=== PATIENT | female | born 2000 | race Caucasian/White ===

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

== ENCOUNTER 2022-03-06 11:33 | Emergency (ER) | payer MEDICAID, SELFPAY ==
[2022-03-06 12:21] VITALS: BP 115/74; PULSE 77; RESP 19; TEMP 36.1; O2SAT 97; BMI 35.4
[2022-03-06 13:06] LABS: Basophils Percent Auto 0.3 % (0-2); Eosinophils Absolute Auto 0.1 X10*3/uL (0.0-0.4); Eosinophils Percent Auto 0.8 % (0-4); Hematocrit 42.9 % (37.0-47.0); Hemoglobin 13.6 g/dl (12.0-16.0); Imm Gran Abs Auto 0.02 X10*3/uL (0.00-0.03); Imm Gran Pct Auto 0.3 % (0.0-0.4); Lymphocytes Absolute Auto 1.8 X10*3/uL (1.2-4.9); Lymphocytes Percent Auto 29.1 % (20-40); MANUAL DIFF FLAG SCAN; Mean Corpuscular HGB Conc 31.7 g/dl (31.0-35.0); Mean Corpuscular Hemoglobin 28.8 pg (27.0-33.0); Mean Corpuscular Volume 90.7 fL (80.0-98.0); Mean Platelet Volume 10.7 fL (9.4-12.3); Monocytes Absolute Auto 0.3 X10*3/uL (0.1-1.2); Monocytes Percent Auto 5.5 % (2-11); Neutrophils Absolute Auto 3.8 x10*3/uL (2.0-8.3); PLT CLUMP 1; Red Blood Count 4.73 X10*6/uL (4.20-5.50); Red Cell Distribution Width 12.6 % (11.0-16.0); SCAN SMEAR FLAG 1
[2022-03-06 13:07] LABS: Platelet Count 213 X10*3/uL (160-400)
[2022-03-06 13:22] LABS: SLIDE REVIEW VERIFIED
[2022-03-06 13:25] LABS: Alanine Aminotransferase 13 U/L (0-31); Albumin Level 4.2 g/dL (3.5-5.0); Alkaline Phosphatase 94 U/L (39-117); Anion Gap 12 (12-20); Aspartate Amino Transferase 17 U/L (5-31); Bilirubin Total 0.4 mg/dL (0.0-1.0); Blood Urea Nitrogen 6 mg/dL (9-16); Calcium 9.9 mg/dL (8.4-10.2); Carbon Dioxide 25 mmol/L (22-29); Chloride 107 mmol/L (96-108); Creatinine Clr Calc Pharmacy 121.6; Estimated Glomerular Filt Rate > 60; Glucose Random 97 mg/dL (60-115); Potassium 4.7 mmol/L (3.3-5.1); Sodium 139 mmol/L (135-145); Total Protein 7.3 g/dL (6.5-8.0)
== END 2022-03-06 20:52 | disposition left against medical advice (07) ==
PROVIDERS: Emergency Provider Emergency Medicine; PCP Nurse Practitioner Pediatrics
DX: N93.9 Abnormal uterine and vaginal bleeding, unspecified (principal)
CPT/HCPCS: 36415; 80053; 85025; 99282; 99283

== ENCOUNTER 2022-06-12 17:08 | Emergency (ER) | payer MEDICAID, SELFPAY ==
[2022-06-12 17:40] VITALS: BP 124/67; PULSE 79; RESP 18; TEMP 36.9; O2SAT 97; BMI 31.8
[2022-06-12 18:14] LABS: COVID-19 Test Negative (Negative); IDNOW Serial# 16C4AD1C; Influenza A Negative (Negative); Influenza B2 Negative (Negative); Strep A Nucleic Acid Negative (Negative)
--- NOTE | 2022-06-12 18:29 | ED_ITS ---
HPI - URI/Sore Throat General Chief Complaint: Upper Respiratory Symptoms Stated Complaint: sob,coughing Time Seen by Provider: 06/12/22 18:28 Source: patient Mode of arrival: ambulatory History of Present Illness HPI Narrative: 21-year-old female who has a remote history of asthma presents with nasal congestion with cough and denies any fever, chills, sore throat, nausea, vomiting, or diarrhea. Patient denies any smoking history, calf swelling, recent travel. Related Data Allergies Allergy/AdvReac Type Severity Reaction Status Date / Time No Known Allergies Allergy Unverified 08/16/20 18:47 Review of Systems Review of Systems: Pertinent positives and negatives as stated in HPI 10 point review of systems is otherwise negative. PMFSH Past Medical History Source: nursing notes reviewed Medical History Active asthma Physical Exam Vital Signs: Vital Signs: Last Vital Signs Temp 98.5 F 06/12/22 17:40 Pulse 79 06/12/22 17:40 Resp 18 06/12/22 17:40 BP 124/67 06/12/22 17:40 Pulse Ox 97 06/12/22 17:40 O2 Del Method 06/12/22 17:40 BMI result Body Mass Index 31.8 VITAL SIGNS: Reviewed. GENERAL: Well developed, well nourished, in no acute distress. HEAD: Normocephalic/atraumatic EYES: PERRLA, EOMI EARS: Ext canals without abnormality OROPHARYNX: no oral lesions noted, posterior pharynx clear and non-erythematous without noted tonsillar enlargement/erythema/exudates NECK: Supple, no adenopathy LUNGS: Normal breath sounds, no tachypnea/wheeze/rhonchi/rales, easy breathing.SpO2<97> CARDIOVASCULAR: Regular rate and rhythm without noted murmurs ABDOMEN: Soft, non-tender, non-distended with bowel sounds. SKIN: Inspection of the skin reveals no rashes NEUROLOGIC: Alert and oriented x 4. Course Course Course Narrative: 21-year-old female with history and clinical presentation most consistent with viral your eye and low clinical suspicion for acute asthma exacerbation and on review viral studies there are no acute findings to suggest COVID-19 or influenza. Patient has easy and nonlabored breathing, oxygenating well on room air and there are no noted wheezing to suggest exacerbation. Patient was reassured and discharged home in stable condition. MDM - URI/Sore Throat Lab Data Labs: Lab Results 06/12/22 06/12/22 06/12/22 Range/Units 17:44 17:44 17:44 COVID-19 (VIRIDIAAN) Negative (Negative) COVID-19 Clin Com See Note Influenza Type A (ADEBAYO) Negative (Negative) Influenza Type B (ADEBAYO) Negative (Negative) Influenza A & B Note See Note S. pyogenes GrpA ADEBAYO Negative (Negative) Discharge Plan Discharge Clinical Impression: Upper respiratory infection, Lab test negative for COVID-19 virus Patient Disposition: Home, Self-Care Instructions: Upper Respiratory Infection (ED) Additional Instructions: You are COVID-19 negative. You will benefit from using Tylenol/ibuprofen as needed for any headaches or body aches. Keep drinking plenty of water and recommend using [id number] cool mist humidifier at bedside while sleeping as well as [id number] cough medicine for cough control. Also, recommend started using your inhaler as an additional adjunct and continue with using the medications for seasonal allergies. Follow-up with your primary care provider in the next 1-2 days for re-ev aluation. Return to the ER for worsening symptoms.
[2022-06-12] MEDS: Benzonatate 100 MG CAPSULE 200 MG PO (18:37)
== END 2022-06-12 18:52 | disposition home or self-care (01) ==
LOC: HO.ED 18:41
PROVIDERS: Emergency Provider Student in an Organized Health Care Education/Training Program
DX: J06.9 Acute upper respiratory infection, unspecified (principal); R06.02 Shortness of breath; R05.9 Cough, unspecified; Z20.822 Contact with and (suspected) exposure to COVID-19
CPT/HCPCS: 87502; 87635; 87651; 99282; 99283

== ENCOUNTER 2023-01-13 16:38 | Outpatient (REF) | payer MEDICAID, SELFPAY ==
--- NOTE | ~2023-01-13 | XR_ITS ---
EXAMINATION: XR CERVICAL SPINE XR THORACIC SPINE XR LUMBAR SPINE CLINICAL INFORMATION: Chronic midline low back pain. COMPARISON: None. TECHNIQUE: AP, open-mouth odontoid, lateral, and both oblique views of the cervical spine, AP, lateral, and swimmer's views of the thoracic spine, and AP, both oblique, and lateral views of the lumbar spine and lateral view of the lumbosacral junction. FINDINGS: Cervical: Vertebral body heights are normal without evidence of fracture. Alignment is anatomic. No spondylolisthesis. Intervertebral disc heights are normal. No degenerative disc disease. Facet joints are normal. Alignment is maintained at the atlanto-axial articulation. The prevertebral soft tissues are normal. Neural foramina are patent. Thoracic: Vertebral body heights are normal. Alignment is anatomic without spondylolisthesis. Intervertebral disc heights are well-maintained. No degenerative disc disease. Paraspinal soft tissues are unremarkable. No osseous lesions are identified. Lumbar: Vertebral body heights are normal. No fracture or spondylolisthesis. Intervertebral disc heights are maintained without significant degenerative disc disease. Bone mineralization is normal. Soft tissues are unremarkable. Imaged portions of the sacroiliac joints are normal. XR/XR cervical spine 4V IMPRESSION: Normal radiographs of the cervical, thoracic, and lumbar spine.
--- NOTE | ~2023-01-13 | XR_ITS ---
EXAMINATION: XR CERVICAL SPINE XR THORACIC SPINE XR LUMBAR SPINE CLINICAL INFORMATION: Chronic midline low back pain. COMPARISON: None. TECHNIQUE: AP, open-mouth odontoid, lateral, and both oblique views of the cervical spine, AP, lateral, and swimmer's views of the thoracic spine, and AP, both oblique, and lateral views of the lumbar spine and lateral view of the lumbosacral junction. FINDINGS: Cervical: Vertebral body heights are normal without evidence of fracture. Alignment is anatomic. No spondylolisthesis. Intervertebral disc heights are normal. No degenerative disc disease. Facet joints are normal. Alignment is maintained at the atlanto-axial articulation. The prevertebral soft tissues are normal. Neural foramina are patent. Thoracic: Vertebral body heights are normal. Alignment is anatomic without spondylolisthesis. Intervertebral disc heights are well-maintained. No degenerative disc disease. Paraspinal soft tissues are unremarkable. No osseous lesions are identified. Lumbar: Vertebral body heights are normal. No fracture or spondylolisthesis. Intervertebral disc heights are maintained without significant degenerative disc disease. Bone mineralization is normal. Soft tissues are unremarkable. Imaged portions of the sacroiliac joints are normal. XR/XR thoracic spine 3V IMPRESSION: Normal radiographs of the cervical, thoracic, and lumbar spine.
--- NOTE | ~2023-01-13 | XR_ITS ---
EXAMINATION: XR CERVICAL SPINE XR THORACIC SPINE XR LUMBAR SPINE CLINICAL INFORMATION: Chronic midline low back pain. COMPARISON: None. TECHNIQUE: AP, open-mouth odontoid, lateral, and both oblique views of the cervical spine, AP, lateral, and swimmer's views of the thoracic spine, and AP, both oblique, and lateral views of the lumbar spine and lateral view of the lumbosacral junction. FINDINGS: Cervical: Vertebral body heights are normal without evidence of fracture. Alignment is anatomic. No spondylolisthesis. Intervertebral disc heights are normal. No degenerative disc disease. Facet joints are normal. Alignment is maintained at the atlanto-axial articulation. The prevertebral soft tissues are normal. Neural foramina are patent. Thoracic: Vertebral body heights are normal. Alignment is anatomic without spondylolisthesis. Intervertebral disc heights are well-maintained. No degenerative disc disease. Paraspinal soft tissues are unremarkable. No osseous lesions are identified. Lumbar: Vertebral body heights are normal. No fracture or spondylolisthesis. Intervertebral disc heights are maintained without significant degenerative disc disease. Bone mineralization is normal. Soft tissues are unremarkable. Imaged portions of the sacroiliac joints are normal. XR/XR lumbar spine 4V min IMPRESSION: Normal radiographs of the cervical, thoracic, and lumbar spine.
== END 2023-01-13 16:39 | disposition home or self-care (01) ==
LOC: HO.XRAY 16:38
PROVIDERS: PCP Registered Nurse; Visit Provider Registered Nurse
DX: M54.50 Low back pain, unspecified (principal); M54.6 Pain in thoracic spine; M54.2 Cervicalgia
CPT/HCPCS: 72050; 72072; 72110

== ENCOUNTER 2023-07-02 13:05 | Outpatient (REF) | payer MEDICAID, SELFPAY ==
[2023-07-03 05:07] LABS: Syphilis Screen Nonreactive (Nonreactive)
[2023-07-03 05:16] LABS: HIV AB/AG Nonreactive (Nonreactive); HIV Num 1 0.05 S/CO (0.00-0.99)
[2023-07-03 05:20] LABS: CT PCR NOT DETECTED (Not Detect.); NG PCR NOT DETECTED (Not Detect.)
[2023-07-03 05:37] LABS: ~HepC Num1 0.15 S/CO (0.00-0.79); ~Hepatitis C Antibody Nonreactive (Nonreactive)
== END 2023-07-02 13:06 | disposition home or self-care (01) ==
LOC: HO.HHCL 13:05
PROVIDERS: Visit Provider Advanced Practice Midwife
DX: Z11.3 Encounter for screening for infections with a predominantly sexual mode of transmission (principal); Z11.4 Encounter for screening for human immunodeficiency virus [HIV]
CPT/HCPCS: 0353U; 36415; 86780; 86803; 87389

== ENCOUNTER 2023-07-21 10:47 | Outpatient (AMB) | payer MEDICAID, SELFPAY ==
[2023-07-21 10:57] VITALS: BP 112/66; PULSE 82; TEMP 36.9; O2SAT 100; BMI 36.2
--- NOTE | 2023-07-21 10:57 | MHC.OFFVIS ---
Intake Vital Signs 07/21/23 10:57 Height 4 ft 10 in Weight 173 lb 4.533 oz BMI 36.2 BP 112/66 Blood Pressure Location Rt brachial Position Sitting Pulse 82 Pulse Source Pulse Oximeter Temp 98.4 F Temp Source Skin Pulse Oximetry (%) 100 Intake Visit Reasons: Chronic lower back pain Intake Note: New pt presents today for consult. C/o low back pain States she saw Rheum as a juvenile, does not recall name of facility Real Time Operator Required: No Accompanied by: Self / Same As Patient Allergies No Known Allergies Allergy (Unverified 07/21/23 11:00) Medication List - Last Reconciled 07/21/23 by Kike Edgar MD albuterol sulfate mg inhalation Q4H PRN albuterol sulfate 90 mcg/actuation (Ventolin HFA) 2 puffs inhalation Q4-6H PRN ascorbic acid (vitamin C) 1,000 mg PO QAM cetirizine 10 mg PO PRN cholecalciferol (vitamin D3) (Vitamin D3) 25 mcg PO QAM diclofenac sodium 1% 2 grams topical etonogestrel-ethinyl estradiol 0.12-0.015 mg/24 hr 0 vag rings vaginal fluticasone propionate 110 mcg/actuation (Flovent HFA) 110 mcg inhalation BID PRN ibuprofen 600 mg PO TID PRN lidocaine 5% 1 patch topical PRN sumatriptan succinate 25 mg PO ONCE PRN HPI HPI Comments History of Present Illness Details This is a 22-year-old female presents for evaluation of low back pain. The condition started since patient was a child. Back in [place] she was told she has scoliosis and a back brace was recommended but patient left [place] and came to the [place] 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 Patient stated that she was on pain medications, she does not recall the name, she does not recall ever being on DMARDs or injectables. She stated that no medicines helped. She mentioned that her diagnosis of juvenile arthritis was withdrawn. She was re-evaluated by another environmental conflict manager at age 19 and physical therapy was prescribed. Patient has mid to low back pain, it lasts all day every day. Patient uses a lidocaine patch and takes Tylenol which helped her pain. The pain does not shoot down her legs. 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 She denies any skin rashes. Denies any history of DVT/PE. She states that her fingers are cold in winter and she wears a large code and puts her hands in her pockets. Denied her hands ever change in color to blue or purple. She is unaware of any family history of autoimmune rheumatic disease [facility] Medical History Acquired scoliosis Active asthma Chronic midline low back pain without sciatica Elevated sed rate Surgical History No history of previous surgery Family History Mother Diabetes Stroke Father Heart disease Unknown Family history of autoimmune disorder Social History Household Members: Significant Other Alcohol intake: never Patient Tobacco Use Status: Never used Tobacco 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al status: employed 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: [employer], [place], operated by [employer] Female Reproductive History Menstrual Total pregnancies: 0 Review of Systems Const Reports headache(s) Eyes Reports dry eyes and Reports itchy eyes ENT Reports headache(s) GI Reports nausea Skin/Breast Reports rash and Reports unusual bruising Neuro Reports headache(s) Psych Reports anxiety and Reports depression Aller/Immun Reports itchy eyes Physical Exam Vital Signs: Last Vital Signs Temp 98.4 F 07/21/23 10:57 Pulse 82 07/21/23 10:57 BP 112/66 07/21/23 10:57 Pulse Ox 100 07/21/23 10:57 BMI result Body Mass Index 36.2 Const General: cooperative, healthy appearing and comfortable Nutritional Appearance: obese Orientation/consciousness: patient oriented x3 Limitations: no limitations HEENT Head: Yes normocephalic and Yes atraumatic Mouth: moist mucous membranes Resp Effort & Inspection: normal respiratory effort and able to speak in complete sentences Auscultation: clear to auscultation bilaterally Cardio Rate: regular rate Rhythm: regular rhythm GI Palpation (GI): Soft to palpation and nontender Back/Spine/Pelvis Other: Negative straight leg raise test bilaterally Negative Jorge test bilaterally Skin General skin exam: no rashes or lesions noted Neuro General: patient oriented x3 Extrem Other: No active synovitis Normal nailfold capillaroscopy Results Reviewed Results Reviewed: Any 2018 homogeneous PRIETO dfs Assessment & Plan Assessment & Plan (1) PRIETO positive: Code(s): R76.8 - Other specified abnormal immunological findings in serum Plan: This is a 22-year-old female who presents for evaluation of chronic mid to low back pain. Labs showed a positive PRIETO. Patient mentions that diagnosis of juvenile arthritis was suggested in her teen years but the diagnosis was withdrawn and she was never on any DMARDs. I do not see any signs of autoimmune rheumatic disease upon evaluation today. We discussed symptoms and signs that are suggestive of autoimmune rheumatic disease. Advised patient to return to clinic if she develops those symptoms. Consider evaluation by physiatry Follow-up as needed Plan I spent 30 minutes reviewing patient's chart, evaluating patient, counseling patient and documenting in the chart Coding Level of Care Code New Pt Level 3 (77179) Diagnoses PRIETO positive R76.8
== END 2023-07-21 11:37 | disposition home or self-care (01) ==
PROVIDERS: PCP Registered Nurse; Visit Provider Student in an Organized Health Care Education/Training Program
DX: R76.8 Other specified abnormal immunological findings in serum (principal)
CPT/HCPCS: 99203

== ENCOUNTER → 2023-07-21 10:47 | Outpatient (BNVA) | payer MEDICAID, SELFPAY | PROVIDERS: PCP Registered Nurse; Visit Provider Student in an Organized Health Care Education/Training Program | DX: R76.8 Other specified abnormal immunological findings in serum (principal) | CPT/HCPCS: 99202 ==

== ENCOUNTER 2023-09-28 18:26 | Outpatient (REF) | payer MEDICAID, SELFPAY ==
[2023-09-28 20:20] LABS: Influenza A PCR NEGATIVE (Negative); Influenza B PCR NEGATIVE (Negative); Resp Syncy Virus RNA Qual PCR NEGATIVE (Negative); SARS COV2 PCR INHOUSE NEGATIVE (Negative)
== END 2023-09-28 18:27 | disposition home or self-care (01) ==
LOC: HO.HHCLNP 18:26
PROVIDERS: Visit Provider Emergency Medicine
DX: R68.89 Other general symptoms and signs (principal); Z11.52 Encounter for screening for COVID-19
CPT/HCPCS: 0241U; 87070

== ENCOUNTER 2023-09-29 14:04 | Outpatient (REF) | payer MEDICAID, SELFPAY | END 2023-09-29 14:05 | disposition home or self-care (01) | LOC: HO.HHCLNP 14:04 | PROVIDERS: Visit Provider Emergency Medicine | DX: K21.9 Gastro-esophageal reflux disease without esophagitis (principal) | CPT/HCPCS: 87338 ==

== ENCOUNTER 2023-10-07 09:19 | Outpatient (REF) | payer MEDICAID, SELFPAY ==
[2023-10-07 12:00] LABS: TSH reflex Free T4 2.34 uIU/mL (0.32-4.0)
== END 2023-10-07 09:20 | disposition home or self-care (01) ==
LOC: HO.HHCL 09:19
PROVIDERS: Visit Provider Advanced Practice Midwife
DX: N92.6 Irregular menstruation, unspecified (principal)
CPT/HCPCS: 36415; 84443

== ENCOUNTER 2023-11-06 08:58 | Outpatient (REF) | payer MEDICAID, SELFPAY ==
--- NOTE | ~2023-11-06 | US_ITS ---
EXAMINATION: US ABDOMEN COMPLETE CLINICAL INFORMATION: Upper abdominal pain. COMPARISON: None available. TECHNIQUE: Real-time imaging of the abdominal viscera. Limited visualization due to bowel gas. FINDINGS: PANCREAS: Limited visualization of pancreatic tail and head. Imaged portion of pancreatic body is unremarkable. ABDOMINAL AORTA: The proximal, mid, and distal segments are normal in caliber. INFERIOR VENA CAVA: Visualized portions are normal. LIVER: Unremarkable in echogenicity. Limited visualization. GALLBLADDER: No gallstones. No gallbladder wall thickening COMMON BILE DUCT: Normal in caliber measuring 0.3 cm in diameter. RIGHT KIDNEY: No hydronephrosis. No renal calculi. Renal cortical thickness is normal. Limited visualization. The kidney measures 10.9 cm in maximum dimension. LEFT KIDNEY: No hydronephrosis. No renal calculi. Renal cortical thickness is normal. Limited visualization. The kidney measures 10.9 cm in maximum dimension. SPLEEN: Normal. The spleen measures 10.1 cm in maximum dimension. FREE FLUID: None. US/US abdomen complete IMPRESSION: Unremarkable exam. Limited visualization.
== END 2023-11-06 08:59 | disposition home or self-care (01) ==
LOC: HO.US 08:58
PROVIDERS: PCP Nurse Practitioner Primary Care; Visit Provider Emergency Medicine
DX: R10.10 Upper abdominal pain, unspecified (principal)
CPT/HCPCS: 76700

== ENCOUNTER 2024-01-26 11:11 | Outpatient (AMB) | payer OTHER, SELFPAY ==
--- NOTE | 2024-01-26 11:21 | MHC.OFFVIS ---
Intake Vital Signs 01/26/24 11:22 Height 4 ft 10 in Weight 189 lb 9.561 oz BMI 39.6 BP 110/60 Blood Pressure Location Lt brachial Position Sitting Pulse 71 Intake Visit Reasons: Gastroesophageal reflux disease (GERD) Intake Note: Ebony presents in the office as a new patient for GERD. CC: She states that she is here due to acid reflux. It comes and goes - she had a whole month of vomiting up yellow stomach acid and she was told to come for more testing. Allergies No Known Allergies Allergy (Unverified 01/26/24 11:24) Medication List - Last Reconciled 01/26/24 by Emma Taylor PA-C albuterol sulfate mg inhalation Q4H PRN diclofenac sodium 1% 2 grams topical famotidine 20 mg PO BID fluticasone propionate 110 mcg/actuation (Flovent HFA) 110 mcg inhalation BID PRN ibuprofen 600 mg PO TID PRN inhalational spacing device (Compact Space Chamber) As directed ketotifen fumarate 0.025%(0.035%) (Eye Itch Relief) 1 drp ophthalmic (eye) Q12H lidocaine 5% 1 patch topical PRN loratadine 10 mg PO QAM PNV cmb#[id number]-ferrous fumarate-FA 28 mg iron- 800 mcg () 1 tab PO QAM sumatriptan succinate 25 mg PO ONCE PRN HPI HPI Comments History of Present Illness Details A 23 y/o female with vomiting for 3-5 months- has lessened- since pepcid ( 09/28/23)-takes prn-with good response Appetite good- no wt loss- normal menses She know tomato triggers sx- but eats prn Constipation- using overnight oats- syed- good response- she will continue Seasonal allergies- Most GI symptoms have resolved/improved nausea or vomiting-as above, she has no abdominal pain fever chills PFSH Medical History (Updated 01/27/24 @ 14:37 by Emma Taylor PA-C) Heart murmur Acquired scoliosis Elevated sed rate Chronic midline low back pain without sciatica Active asthma Surgical History No history of previous surgery Family History (Updated 01/26/24 @ 11:49 by Emma Taylor PA-C) Mother Diabetes Stroke Father Heart disease Unknown Family history of autoimmune disorder Family/Other Colon cancer Social History Household Members: Significant Other Alcohol intake: never Patient Tobacco Use Status: Never used Tobacco 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al status: employed 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: [employer], operated by [employer] Review of Systems Const All systems reviewed & are unremarkable except as noted in HPI and below Card Denies chest pain and Denies dyspnea Resp Denies dyspnea GI Reports constipation (better with fiber=) Physical Exam Vital Signs: Last Vital Signs Pulse 71 01/26/24 11:22 BP 110/60 01/26/24 11:22 BMI result Body Mass Index 39.6 Const General: cooperative, healthy appearing, comfortable and no acute distress Orientation/consciousness: patient oriented x3 Limitations: no limitations Eyes Conjunctivae: conjunctivae normal Resp Effort & Inspection: normal respiratory effort and able to speak in complete sentences Auscultation: clear to auscultation bilaterally, no rales, no rhonchi and no wheezes Cardio Rate: regular rate Rhythm: regular rhythm Heart sounds: S1 normal heart sound present and S2 normal heart sound present GI Inspection: Yes normal to inspection Palpation (GI): Soft to palpation and nontender Auscultation: normal bowel sounds Skin General skin exam: no rashes or lesions noted Neuro General: patient oriented x3 Extrem General: Yes full ROM Psych Appearance: grossly normal and well kempt Mental Status: mental status grossly normal Speech and movement: Normal speech and movement present and Clear speech present Affect: normal affect Attitude: cooperative Thought process: Normal thought process present Thought content: Normal thought content present Assessment & Plan Assessment & Plan (1) Vomiting: Comment: Chronic nausea vomiting, much improved since Pepcid and dietary modifications Code(s): R11.10 - Vomiting, unspecified Plan: Continue Pepcid Reviewed reflux precautions Avoid culprits Abdominal ultrasound assess both gallbladder as well as liver (2) Dyspepsia: Code(s): R10.13 - Epigastric pain Plan: Continue famotidine (3) Constipation: Code(s): K59.00 - Constipation, unspecified Plan: Continue with bowel regimen Plan Nausea vomiting improved will continue dietary modifications famotidine 20 mg , may take b.i.d. if needed She will keep food diary Continue bowel regimen Will see her back for progress Medications: New famotidine 20 mg PO BID 30 days 60 tabs 5RF Patient Instructions: Very pleasant 23-year-old female referred with chronic nausea and vomiting. However she has had some improvement with use of H2 jenn and dietary modifications. Nausea vomiting improved will continue dietary modifications famotidine 20 mg , may take b.i.d. if needed She will keep food diary Continue bowel regimen-as symptoms have improved Will see her back for progress Encouraged to call questions or concerns Appreciate the opportunity assist in the care this pleasant patient Coding Level of Care Code New Pt Level 3 (73970) Diagnoses Vomiting R11.10 Dyspepsia R10.13 Constipation K59.00 Time Spent (min) 30
[2024-01-26 11:22] VITALS: BP 110/60; PULSE 71; BMI 39.6
== END 2024-01-26 12:05 | disposition home or self-care (01) ==
PROVIDERS: PCP Nurse Practitioner Primary Care; Visit Provider Physician Assistant
DX: R11.10 Vomiting, unspecified (principal); R10.13 Epigastric pain; K59.00 Constipation, unspecified
CPT/HCPCS: 99203

== ENCOUNTER → 2024-01-26 11:11 | Outpatient (BNVA) | payer OTHER, SELFPAY | PROVIDERS: PCP Nurse Practitioner Primary Care; Visit Provider Physician Assistant | DX: K59.00 Constipation, unspecified (principal); R11.10 Vomiting, unspecified; R10.13 Epigastric pain | CPT/HCPCS: 99202 ==

== ENCOUNTER 2024-01-29 13:19 | Outpatient (REF) | payer OTHER, SELFPAY ==
[2024-01-29 16:04] LABS: MANUAL DIFF FLAG NO
[2024-01-29 16:32] LABS: Basophils Percent Auto 0.4 % (0-2); Eosinophils Absolute Auto 0.2 X10*3/uL (0.0-0.4); Eosinophils Percent Auto 2.1 % (0-4); Hemoglobin 13.4 g/dl (12.0-16.0); Imm Gran Abs Auto 0.02 X10*3/uL (0.00-0.03); Imm Gran Pct Auto 0.3 % (0.0-0.4); Lymphocytes Percent Auto 27.6 % (20-40); Mean Corpuscular HGB Conc 31.9 g/dl (31.0-35.0); Mean Corpuscular Hemoglobin 29.5 pg (27.0-33.0); Mean Corpuscular Volume 92.5 fL (80.0-98.0); Mean Platelet Volume 10.3 fL (9.4-12.3); Monocytes Absolute Auto 0.5 X10*3/uL (0.1-1.2); Monocytes Percent Auto 6.4 % (2-11); Neutrophils Absolute Auto 4.6 x10*3/uL (2.0-8.3); Neutrophils Percent Auto 63.2 % (45-73); Platelet Count 235 X10*3/uL (160-400); Red Blood Count 4.54 X10*6/uL (4.20-5.50); Red Cell Distribution Width 12.4 % (11.0-16.0); White Blood Count 7.3 X10*3/uL (4.8-10.8)
[2024-01-29 16:43] LABS: Iron 74 mcg/dL (30-160); Percent Iron Saturation 26 % (15-50); Total Iron Binding Capacity 281 mcg/dL (228-428); Unsaturated Iron Binding 207 ug/dL
== END 2024-01-29 13:20 | disposition home or self-care (01) ==
LOC: HO.HHCL 13:19
PROVIDERS: Visit Provider Nurse Practitioner Primary Care
DX: R42 Dizziness and giddiness (principal)
CPT/HCPCS: 36415; 83540; 85025

== ENCOUNTER 2024-02-25 13:18 | Outpatient (REF) | payer OTHER, SELFPAY ==
--- NOTE | ~2024-02-25 | US_ITS ---
EXAMINATION: US DIAGNOSTIC ULTRASOUND BREAST, BILATERAL CLINICAL INFORMATION: 23-year-old female complaining of diffuse bilateral breast pain. COMPARISON: None available. TECHNIQUE: Ultrasound of both breasts was performed with real-time nunes scale imaging and color Doppler. Both breasts were scanned in entirety. FINDINGS: There is no focal suspicious finding. There is no solid mass, architectural abnormality, duct ectasia, or edema in the soft tissue planes. There is no cystic abnormality. There are no sonographic findings to explain the patient's bilateral diffuse breast pain. US/US breast BI limited mamm only IMPRESSION: No findings suspicious for malignancy. Specifically, no sonographic findings present to explain the patient's bilateral diffuse breast pain. Recommend clinical management of the patient's symptomatology. ASSESSMENT: BI-RADS 1: Negative RECOMMENDATION: 1. Patient should be managed based on the clinical impression.
== END 2024-02-25 13:19 | disposition home or self-care (01) ==
LOC: HO.MAMMO 13:18
PROVIDERS: PCP Nurse Practitioner Primary Care; Visit Provider Nurse Practitioner Primary Care
DX: N64.4 Mastodynia (principal)
CPT/HCPCS: 76642

== ENCOUNTER → 2024-02-25 13:30 | Outpatient (BNV) | payer OTHER, SELFPAY | PROVIDERS: PCP Nurse Practitioner Primary Care; Visit Provider Radiology Diagnostic Radiology | DX: N64.4 Mastodynia (principal) | CPT/HCPCS: 76641 ==

== ENCOUNTER 2024-03-28 20:07 | Outpatient (REF) | payer OTHER, SELFPAY | END 2024-03-28 20:08 | disposition home or self-care (01) | LOC: HO.HHCLNP 20:07 | PROVIDERS: Visit Provider Advanced Practice Midwife | DX: Z01.419 Encounter for gynecological examination (general) (routine) without abnormal findings (principal) | CPT/HCPCS: 88142 ==

== ENCOUNTER 2024-03-30 13:21 | Outpatient (REF) | payer OTHER, SELFPAY ==
--- NOTE | ~2024-03-30 | XR_ITS ---
EXAMINATION: XR SACROILIAC JOINTS CLINICAL INFORMATION: Low back pain, unspecified. COMPARISON: None available. TECHNIQUE: 3 views of the sacroiliac joints FINDINGS: Bones and soft tissues are normal. No fracture. Alignment is anatomic. Sacroiliac joint spaces are well-maintained without erosions or surrounding sclerosis. XR/XR sacroiliac joint min 3V IMPRESSION: Normal sacroiliac joints.
== END 2024-03-30 13:22 | disposition home or self-care (01) ==
LOC: HO.XRAY 13:21
PROVIDERS: PCP Nurse Practitioner Primary Care; Visit Provider Student in an Organized Health Care Education/Training Program
DX: M54.50 Low back pain, unspecified (principal)
CPT/HCPCS: 72202

== ENCOUNTER 2024-03-30 13:21 | Outpatient (AMB) | payer OTHER, SELFPAY ==
--- NOTE | 2024-03-30 13:28 | MHC.OFFVIS ---
Vital Signs 03/30/24 13:39 Height 4 ft 10 in Weight 198 lb 10.184 oz BMI 41.5 BP 122/74 Blood Pressure Location Rt brachial Position Sitting Pulse 90 Pulse Source Pulse Oximeter Pulse Oximetry (%) 97 Oxygen Delivery Method Room Air Intake Visit Reasons: arthritis Intake Note: Pt last seen 07/21/23 presents today for consult recommended by [facility]. Pt states she saw them twice. MRI was done and revealed arthritis in different areas. Today pt c/o joint pain in multiple areas, worse in colder weather, morning stiffness; back pain mid line. 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 Taking otc nsaids and using lidocaine patches, but this is not helping. Grant Specialist Required: No Accompanied by: Self / Same As Patient Allergies No Known Allergies Allergy (Unverified 03/30/24 13:41) Medication List - Last Reconciled 03/30/24 by Kike Edgar MD albuterol sulfate mg inhalation Q4H PRN drospirenone (contraceptive) (Slynd) 1 tab PO DAILY famotidine 20 mg PO BID fluticasone propionate 110 mcg/actuation (Flovent HFA) 110 mcg inhalation BID PRN inhalational spacing device (Compact Space Chamber) As directed ketotifen fumarate 0.025%(0.035%) (Eye Itch Relief) 1 drp ophthalmic (eye) Q12H lidocaine 5% 1 patch topical PRN loratadine 10 mg PO QAM sumatriptan succinate 25 mg PO ONCE PRN HPI Comments Details: Patient returns for follow-up. She was recently evaluated by [facility] and she had another spine MRI which showed degenerative changes. She was advised to follow-up pathology. She states that she continues to have low back pain and stiffness. Usually worse in the morning. She takes ibuprofen 600 mg once or twice a day, it sometimes helps. She also states that she gets intermittent pain in her hands, knees and ankles. Rare swelling. Morning stiffness of her hands lasting a few minutes. Initial history: This is a 22-year-old female presents for evaluation of low back pain. The condition started since patient was a child. Back in [place] she was told she has scoliosis and a back brace was recommended but patient left [place] and came [place] At around age 13/16 patient was evaluated by a pediatric wafer fabrication technician in [place] and juvenile arthritis was suggested. Patient stated that she was on pain medications, she does not recall the name, she does not recall ever being on DMARDs or injectables. She stated that no medicines helped. She mentioned that her diagnosis of juvenile arthritis was withdrawn. She was re-evaluated by another wafer fabrication technician at age 19 and physical therapy was prescribed. Patient has mid to low back pain, it lasts all day every day. Patient uses a lidocaine patch and takes Tylenol which helped her pain. The pain does not shoot down her legs. 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 She denies any skin rashes. Denies any history of DVT/PE. She states that her fingers are cold in winter and she wears a large code and puts her hands in her pockets. Denied her hands ever change in color to blue or purple. She is unaware of any family history of autoimmune rheumatic disease [facility] Medical History Heart murmur Acquired scoliosis Elevated sed rate Chronic midline low back pain without sciatica Active asthma Surgical History No history of previous surgery Family History Mother Diabetes Stroke Father Heart disease Unknown Family history of autoimmune disorder Family/Other Colon cancer Social History Household Members: Significant Other Alcohol intake: current Alcohol intake frequency: holidays/special occasions only Patient Tobacco Use Status: Never used Tobacco 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al status: employed 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: [employer] Review of Systems [facility] [employer] [facility] Reports back pain, Reports arthralgias, Reports joint swelling and Reports stiffness Physical Exam Vital Signs: Last Vital Signs Pulse 90 03/30/24 13:39 BP 122/74 03/30/24 13:39 Pulse Ox 97 03/30/24 13:39 Oxygen Delivery Method Room Air 03/30/24 13:39 BMI result Body Mass Index 41.5 Const General: cooperative, healthy appearing and comfortable Nutritional Appearance: obese Orientation/consciousness: patient oriented x3 Limitations: no limitations HEENT Head: Yes normocephalic and Yes atraumatic Mouth: moist mucous membranes Resp Effort & Inspection: normal respiratory effort and able to speak in complete sentences Auscultation: clear to auscultation bilaterally Cardio Rate: regular rate Rhythm: regular rhythm GI Palpation (GI): Soft to palpation and nontender Back/Spine/Pelvis Other: Negative straight leg raise test bilaterally Negative Charley test bilaterally Skin General skin exam: no rashes or lesions noted Neuro General: patient oriented x3 Extrem Other: No active synovitis Normal nailfold capillaroscopy Mildly hyper flexible thumbs Genu valgus bilaterally Able to put both palms on the floor with knee straight Radha test 10-17 cm Negative straight leg raise test bilaterally Negative Charley test on the right Equivocal CHARLEY test on the left Results Reviewed Results Reviewed: Any 2018 homogeneous PRIETO 2022 dfs Assessment & Plan Assessment & Plan (1) PRIETO positive: Code(s): R76.8 - Other specified abnormal immunological findings in serum Category: Medical Plan: This is a 23-year-old female who presents for evaluation of chronic mid to low back pain. Labs showed a positive PRIETO. Patient mentions that diagnosis of juvenile arthritis was suggested in her teen years but the diagnosis was withdrawn and she was never on any DMARDs. She was recently evaluated by [facility] and an L-spine MRI showed degenerative changes. She was advised to follow up with Rheumatology. There is hypermobility on exam. I could not appreciate any swollen joints. Will order comprehensive serology to screen for underlying autoimmune rheumatic disease. Check bilateral SI joint x-rays to evaluate for sacroiliitis Follow-up in about 6 weeks Plan I spent 30 minutes reviewing patient's chart, evaluating patient, ordering diagnostic workup, counseling patient and documenting in the chart Orders: Orders Complement C4 Today M32.9 - Systemic lupus erythematosus, unspecified DNA Double Stranded-Crithidia Today M32.9 - Systemic lupus erythematosus, unspecified Erythrocyte Sedimentation Rate Today M32.9 - Systemic lupus erythematosus, unspecified Sjogren's Antibodies Today M32.9 - Systemic lupus erythematosus, unspecified UA w Microscopic Today M32.9 - Systemic lupus erythematosus, unspecified Comprehensive Met. Panel Today M32.9 - Systemic lupus erythematosus, unspecified Cyclic Citrullinated Peptide Today M25.50 - Pain in unspecified joint HLA B27 Today M45.9 - Ankylosing spondylitis of unspecified sites in spine XR sacroiliac joint min 3V Today M54.50 - Low back pain, unspecified PRIETO Reflex Titer and Pattern Today M32.9 - Systemic lupus erythematosus, unspecified Anti Extractable Nuclear Ag Today M32.9 - Systemic lupus erythematosus, unspecified Anti DNA DS Antibody Today M32.9 - Systemic lupus erythematosus, unspecified Complement C3 Today M32.9 - Systemic lupus erythematosus, unspecified C Reactive Protein Today M32.9 - Systemic lupus erythematosus, unspecified Protein Creatinine Ratio, Ur Today M32.9 - Systemic lupus erythematosus, unspecified Complete Blood Count Auto Diff Today M32.9 - Systemic lupus erythematosus, unspecified Rheumatoid Factor Today M25.50 - Pain in unspecified joint Hepatitis A,B,C Profile Today Z11.59 - Encounter for screening for other viral diseases Coding Level of Care Code Est Pt Level 4 (17932) Diagnoses PRIETO positive R76.8
[2024-03-30 13:39] VITALS: BP 122/74; PULSE 90; O2SAT 97; BMI 41.5
== END 2024-03-30 14:26 | disposition home or self-care (01) ==
LOC: HO.RHE 13:21
PROVIDERS: PCP Nurse Practitioner Primary Care; Visit Provider Student in an Organized Health Care Education/Training Program
DX: R76.8 Other specified abnormal immunological findings in serum (principal)
CPT/HCPCS: 99214

== ENCOUNTER 2024-03-31 12:27 | Outpatient (REF) | payer OTHER, SELFPAY ==
[2024-03-31 13:03] LABS: MANUAL DIFF FLAG NO
[2024-03-31 13:22] LABS: Basophils Percent Auto 0.4 % (0-2); Eosinophils Absolute Auto 0.2 X10*3/uL (0.0-0.4); Eosinophils Percent Auto 2.2 % (0-4); Hematocrit 39.2 % (37.0-47.0); Hemoglobin 12.8 g/dl (12.0-16.0); Imm Gran Abs Auto 0.02 X10*3/uL (0.00-0.03); Imm Gran Pct Auto 0.3 % (0.0-0.4); Lymphocytes Absolute Auto 2.1 X10*3/uL (1.2-4.9); Lymphocytes Percent Auto 30.4 % (20-40); Mean Corpuscular HGB Conc 32.7 g/dl (31.0-35.0); Mean Corpuscular Hemoglobin 29.8 pg (27.0-33.0); Mean Corpuscular Volume 91.4 fL (80.0-98.0); Mean Platelet Volume 10.1 fL (9.4-12.3); Monocytes Absolute Auto 0.3 X10*3/uL (0.1-1.2); Monocytes Percent Auto 4.3 % (2-11); Neutrophils Absolute Auto 4.2 x10*3/uL (2.0-8.3); Neutrophils Percent Auto 62.4 % (45-73); Platelet Count 244 X10*3/uL (160-400); Red Blood Count 4.29 X10*6/uL (4.20-5.50); Red Cell Distribution Width 12.2 % (11.0-16.0); White Blood Count 6.8 X10*3/uL (4.8-10.8)
[2024-03-31 13:51] LABS: Alanine Aminotransferase 14 U/L (0-31); Albumin Level 4.1 g/dL (3.5-5.0); Alkaline Phosphatase 96 U/L (39-117); Anion Gap 13 (12-20); Aspartate Amino Transferase 15 U/L (5-31); Bilirubin Total 0.2 mg/dL (0.0-1.0); Blood Urea Nitrogen 10 mg/dL (9-16); C Reactive Protein 0.61 mg/dL (< or = 0.50); Calcium 9.6 mg/dL (8.4-10.2); Carbon Dioxide 24 mmol/L (22-29); Chloride 107 mmol/L (96-108); Estimated Glomerular Filt Rate > 60; Glucose Random 126 mg/dL (60-115); Potassium 3.6 mmol/L (3.3-5.1); Sodium 140 mmol/L (135-145); Total Protein 7.5 g/dL (6.5-8.0)
[2024-03-31 13:58] LABS: Erythrocyte Sedimentation Rate 23 MM/HR (0-20)
[2024-03-31 14:00] LABS: Rheumatoid Factor < 13.0 IU/mL (<15.0)
[2024-03-31 16:57] LABS: Appearance Urine Cloudy; Color Urine Yellow; Glucose Urine UA Negative (Negative); Leukocyte Esterase Urine Large (3+) (Negative); Nitrite Urine Negative (Negative); PH 7.5 (5.0-9.0); Specific Gravity - Urine 1.025 (1.005-1.025); UMIC TRIGGER UA YES; Urine Blood Negative (Negative); Urine Ketones Negative (Negative); Urine Protein Negative (Neg-Trace)
[2024-03-31 17:11] LABS: Bacteria Urine 4+ (None Seen); RBC Urine 0-2 /HPF (0-2); WBC Urine 21-50 /HPF (0-5)
[2024-03-31 17:30] LABS: Creatinine Urine 107.46 mg/dL; Protein/Creatinine Ratio, Ur 0.07 (<0.2); Total Protein Urine Random 8 mg/dL (<12)
[2024-04-01 08:36] LABS: HBc Num1 0.06 S/CO (0.00-0.79); Hepatitis A Antibody IgM 0.13 Index (0-0.79); Hepatitis B Core Antibody Nonreactive (Nonreactive); ~Hepatitis A Antibody IgM Nonreactive (Nonreactive)
[2024-04-01 09:05] LABS: HBS Num1 0.35 mIU/mL (0-7.99); Hepatitis B Surface Antigen Negative (Negative); ~HepC Num1 0.11 S/CO (0.00-0.79); ~Hepatitis B Surface Antibody NONREACTIVE (Nonreactive); ~Hepatitis C Antibody Nonreactive (Nonreactive)
[2024-04-01 13:53] LABS: Complement C3 170 mg/dL (83-193)
[2024-04-01 14:04] LABS: Cyclic Citrullinated Peptide <16 UNITS
[2024-04-01 19:49] LABS: Anti DNA DS Antibody <1 IU/mL; Antibody to SS-A Antigen <1.0 NEG AI (<1.0 NEG); Antibody to SS-B Antigen <1.0 NEG AI (<1.0 NEG); SM/Ribonucleoprotein Ab <1.0 NEG AI (<1.0 NEG); Smith Protein <1.0 NEG AI (<1.0 NEG)
[2024-04-04 12:38] LABS: Anti Nuclear Antibody Screen POSITIVE (NEGATIVE)
[2024-04-05 15:28] LABS: DNAds, Crithidia Antibody Negative (Negative)
[2024-04-06 18:18] LABS: HLA B27 Negative (Negative)
== END 2024-03-31 12:28 | disposition home or self-care (01) ==
LOC: HO.HHCL 12:27
PROVIDERS: Visit Provider Student in an Organized Health Care Education/Training Program
DX: Z11.59 Encounter for screening for other viral diseases (principal); M32.9 Systemic lupus erythematosus, unspecified; M25.50 Pain in unspecified joint; M45.9 Ankylosing spondylitis of unspecified sites in spine; Z72.89 Other problems related to lifestyle
CPT/HCPCS: 36415; 80053; 81001; 82570; 84156; 85025; 85652; 86038; 86039; 86140; 86160; 86200; 86225; 86235; 86255; 86431; 86704; 86706; 86709; 86803; 86812; 87340

== ENCOUNTER 2024-04-14 15:37 | Outpatient (REF) | payer OTHER, SELFPAY ==
[2024-04-17 08:53] LABS: TS Negative Control Passed; TS Panel A 0; TS Panel B 0; TS Positive Control Passed; TSpotTB Negative (Negative)
== END 2024-04-14 15:38 | disposition home or self-care (01) ==
LOC: HO.HHCL 15:37
PROVIDERS: Visit Provider Nurse Practitioner Primary Care
DX: Z11.1 Encounter for screening for respiratory tuberculosis (principal)
CPT/HCPCS: 36415; 86481

== ENCOUNTER 2024-05-11 08:00 | Outpatient (AMB) | payer OTHER, SELFPAY ==
[2024-05-11 08:10] VITALS: BP 108/72; PULSE 88; O2SAT 98; BMI 40.9
--- NOTE | 2024-05-11 08:10 | A.OFFVIS_ITS ---
Vital Signs 05/11/24 08:10 Height 4 ft 10 in Weight 195 lb 8.8 oz BMI 40.9 BP 108/72 Blood Pressure Location Rt brachial Position Sitting Pulse 88 Pulse Source Pulse Oximeter Pulse Oximetry (%) 98 Oxygen Delivery Method Room Air Intake Visit Reasons: LBP Intake Note: Patient last seen 03/30/24, reports today for 6 week follow up on LBP. Reports hand stiffness Film Critic Required: No Accompanied by: Self / Same As Patient Allergies No Known Allergies Allergy (Unverified 05/11/24 08:13) Medication List - Last Reconciled 05/11/24 by Kike Edgar MD albuterol sulfate mg inhalation Q4H PRN drospirenone (contraceptive) (Slynd) 1 tab PO DAILY famotidine 20 mg PO BID fluticasone propionate 110 mcg/actuation (Flovent HFA) 110 mcg inhalation BID PRN inhalational spacing device (Compact Space Chamber) As directed ketotifen fumarate 0.025%(0.035%) (Eye Itch Relief) 1 drp ophthalmic (eye) Q12H lidocaine 5% 1 patch topical PRN loratadine-pseudoephedrine 10-240 mg ER (Allergy Relief and Nasal Decongestant) 1 tab PO DAILY PRN sumatriptan succinate 25 mg PO ONCE PRN HPI Comments Details: Patient returns for follow-up after completion of her diagnostic workup. Continues to feel about the same. Continues to have back pain, especially in the middle of the night. It wakes her up from sleep about every other day. She has back stiffness lasting 5-10 minutes. Initial history: This is a 22-year-old female presents for evaluation of low back pain. The condition started since patient was a child. Back in [place] she was told she has scoliosis and a back brace was recommended but patient left [place] and came [place] At around age [age] patient was evaluated by a pediatric sales enablement manager in [place] and juvenile arthritis was suggested. Patient stated that she was on pain medications, she does not recall the name, she does not recall ever being on DMARDs or injectables. She stated that no medicines helped. She mentioned that her diagnosis of juvenile arthritis was withdrawn. She was re-evaluated by another sales enablement manager at age 19 and physical therapy was prescribed. Patient has mid to low back pain, it lasts all day every day. Patient uses a lidocaine patch and takes Tylenol which helped her pain. The pain does not shoot down her legs. 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 She denies any skin rashes. Denies any history of DVT/PE. She states that her fingers are cold in winter and she wears a large code and puts her hands in her pockets. Denied her hands ever change in color to blue or purple. She is unaware of any family history of autoimmune rheumatic disease [facility] Medical History Heart murmur Acquired scoliosis Elevated sed rate Chronic midline low back pain without sciatica Active asthma Surgical History (Reviewed 05/11/24 @ 08: by Kike Edgar MD) No history of previous surgery Family History Mother Diabetes Stroke Father Heart disease Unknown Family history of autoimmune disorder Family/Other Colon cancer Social History Household Members: Significant Other Alcohol intake: current Alcohol intake frequency: holidays/special occasions only Patient Tobacco Use Status: Never used Tobacco 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al status: employed 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: [employer] Female Reproductive History Menstrual Total pregnancies: 0 Review of Systems [facility] Reports back pain, Reports arthralgias, Reports joint swelling and Reports stiffness Physical Exam Vital Signs: Last Vital Signs Pulse 88 05/11/24 08:10 BP 108/72 05/11/24 08:10 Pulse Ox 98 05/11/24 08:10 Oxygen Delivery Method Room Air 05/11/24 08:10 BMI result Body Mass Index 40.9 Const General: cooperative, healthy appearing and comfortable Nutritional Appearance: obese Orientation/consciousness: patient oriented x3 Limitations: no limitations HEENT Head: Yes normocephalic and Yes atraumatic Mouth: moist mucous membranes Resp Effort & Inspection: normal respiratory effort and able to speak in complete sentences Cardio Rate: regular rate Rhythm: regular rhythm GI Palpation (GI): Soft to palpation and nontender Back/Spine/Pelvis Other: Negative straight leg raise test bilaterally Negative Charley test bilaterally Skin General skin exam: no rashes or lesions noted Neuro General: patient oriented x3 Extrem Other: No swollen joints on exam Normal nailfold capillaroscopy Multiple paraspinal muscle tenderness Mildly hyper flexible thumbs Genu valgus bilaterally Able to put both palms on the floor with knee straight Radha test 10-17 cm Negative straight leg raise test bilaterally Negative Charley test on the right Equivocal CHARLEY test on the left Results Reviewed Results Reviewed: Any 2018 homogeneous PRIETO 2022 dfs Assessment & Plan Assessment & Plan (1) PRIETO positive: Code(s): R76.8 - Other specified abnormal immunological findings in serum Category: Medical Plan: This is a 23-year-old female who presents for evaluation of chronic mid to low back pain. Labs showed a positive PRIETO. Patient mentions that diagnosis of juvenile arthritis was suggested in her teen years but the diagnosis was withdrawn and she was never on any DMARDs. She was recently evaluated by [facility] and an L-spine MRI showed degenerative changes. She was advised to follow up with Rheumatology. There is hypermobility on exam. I could not appreciate any swollen joints. Comprehensive serology is negative except for her positive PRIETO. Inflammatory markers mildly elevated and may be related to obesity. She continues to have nocturnal symptoms. 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 Advised patient to call us if she develops any stomach upset Labs before next visit in 3 months Plan I spent 25 minutes reviewing patient's chart, evaluating patient, ordering diagnostic workup, counseling patient and documenting in the chart Orders: Orders Comprehensive Met. 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
== END 2024-05-11 08:25 | disposition home or self-care (01) ==
PROVIDERS: PCP Nurse Practitioner Primary Care; Visit Provider Student in an Organized Health Care Education/Training Program
DX: R76.8 Other specified abnormal immunological findings in serum (principal)
CPT/HCPCS: 99213

== ENCOUNTER → 2024-05-11 08:00 | Outpatient (BNVA) | payer OTHER, SELFPAY | PROVIDERS: PCP Nurse Practitioner Primary Care; Visit Provider Student in an Organized Health Care Education/Training Program ==

== ENCOUNTER 2024-06-17 12:10 | Outpatient (REF) | payer OTHER, SELFPAY ==
[2024-06-17 21:21] LABS: HCG Quantitative < 2 mIU/mL
== END 2024-06-17 12:11 | disposition home or self-care (01) ==
LOC: HO.HHCL 12:10
PROVIDERS: Visit Provider Family Medicine
DX: N92.6 Irregular menstruation, unspecified (principal)
CPT/HCPCS: 36415; 84702

== ENCOUNTER 2024-08-03 09:02 | Outpatient (REF) | payer OTHER, SELFPAY ==
[2024-08-03 11:08] LABS: MANUAL DIFF FLAG NO
[2024-08-03 11:19] LABS: Basophils Percent Auto 0.3 % (0-2); Eosinophils Absolute Auto 0.1 X10*3/uL (0.0-0.4); Eosinophils Percent Auto 2.4 % (0-4); Hemoglobin 12.6 g/dl (12.0-16.0); Imm Gran Abs Auto 0.01 X10*3/uL (0.00-0.03); Imm Gran Pct Auto 0.2 % (0.0-0.4); Lymphocytes Absolute Auto 1.5 X10*3/uL (1.2-4.9); Lymphocytes Percent Auto 26.5 % (20-40); Mean Corpuscular HGB Conc 32.3 g/dl (31.0-35.0); Mean Corpuscular Hemoglobin 29.6 pg (27.0-33.0); Mean Corpuscular Volume 91.8 fL (80.0-98.0); Mean Platelet Volume 10.6 fL (9.4-12.3); Monocytes Absolute Auto 0.3 X10*3/uL (0.1-1.2); Monocytes Percent Auto 5.3 % (2-11); Neutrophils Absolute Auto 3.8 x10*3/uL (2.0-8.3); Neutrophils Percent Auto 65.3 % (45-73); Platelet Count 235 X10*3/uL (160-400); Red Blood Count 4.25 X10*6/uL (4.20-5.50); Red Cell Distribution Width 12.7 % (11.0-16.0); White Blood Count 5.8 X10*3/uL (4.8-10.8)
[2024-08-03 11:39] LABS: Alanine Aminotransferase 11 U/L (0-31); Albumin Level 3.9 g/dL (3.5-5.0); Alkaline Phosphatase 101 U/L (39-117); Anion Gap 10 (12-20); Aspartate Amino Transferase 16 U/L (5-31); Bilirubin Total 0.4 mg/dL (0.0-1.0); Blood Urea Nitrogen 8 mg/dL (9-16); C Reactive Protein 0.66 mg/dL (< or = 0.50); Calcium 9.4 mg/dL (8.4-10.2); Carbon Dioxide 27 mmol/L (22-29); Chloride 107 mmol/L (96-108); Estimated Glomerular Filt Rate > 60; Glucose Random 96 mg/dL (60-115); Sodium 140 mmol/L (135-145); Total Protein 7.2 g/dL (6.5-8.0)
[2024-08-03 11:54] LABS: Erythrocyte Sedimentation Rate 23 MM/HR (0-20)
== END 2024-08-03 09:03 | disposition home or self-care (01) ==
LOC: HO.HHCL 09:02
PROVIDERS: Visit Provider Student in an Organized Health Care Education/Training Program
DX: M45.A0 Non-radiographic axial spondyloarthritis of unspecified sites in spine (principal)
CPT/HCPCS: 36415; 80053; 85025; 85652; 86140

== ENCOUNTER 2024-08-11 08:42 | Outpatient (AMB) | payer OTHER, SELFPAY ==
--- NOTE | 2024-08-11 08:43 | MHC.OFFVIS ---
Vital Signs 08/11/24 08:46 Height 4 ft 10 in Weight 193 lb 12.581 oz BMI 40.5 BP 115/62 Blood Pressure Location Rt brachial Position Sitting Pulse 81 Pulse Source Pulse Oximeter Pulse Oximetry (%) 98 Oxygen Delivery Method Room Air Intake Visit Reasons: NRAxSpA Intake Note: Patient presents for NRAxSpA. Allergies No Known Allergies Allergy (Verified 08/11/24 08:45) Medication List - Last Reconciled 08/11/24 by Kike Edgar MD albuterol sulfate mg inhalation Q4H PRN drospirenone (contraceptive) (Slynd) 1 tab PO DAILY famotidine 20 mg PO ONCE PRN fluticasone propionate 110 mcg/actuation (Flovent HFA) 110 mcg inhalation BID PRN inhalational spacing device (Compact Space Chamber) As directed ketotifen fumarate 0.025%(0.035%) (Eye Itch Relief) 1 drp ophthalmic (eye) Q12H lidocaine 5% 1 patch topical PRN loratadine-pseudoephedrine 10-240 mg ER (Allergy Relief and Nasal Decongestant) 1 tab PO DAILY PRN sumatriptan succinate 25 mg PO ONCE PRN HPI Comments Details: Patient returns for follow-up she took meloxicam for 4-5 weeks and stopped it due to GI upset even when combined with Pepcid. She continues to have lower back pain. Generally worse at night. She mentions that she has history of anxiety and used to follow-up with a therapist in the past. Initial history: This is a 22-year-old female presents for evaluation of low back pain. The condition started since patient was a child. Back in [place] she was told she has scoliosis and a back brace was recommended but patient left [place] and came [place] At around age [age] patient was evaluated by a pediatric cathode ray tube salvage processor in [place] and juvenile arthritis was suggested. Patient stated that she was on pain medications, she does not recall the name, she does not recall ever being on DMARDs or injectables. She stated that no medicines helped. She mentioned that her diagnosis of juvenile arthritis was withdrawn. She was re-evaluated by another cathode ray tube salvage processor at age 19 and physical therapy was prescribed. Patient has mid to low back pain, it lasts all day every day. Patient uses a lidocaine patch and takes Tylenol which helped her pain. The pain does not shoot down her legs. 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 She denies any skin rashes. Denies any history of DVT/PE. She states that her fingers are cold in winter and she wears a large code and puts her hands in her pockets. Denied her hands ever change in color to blue or purple. She is unaware of any family history of autoimmune rheumatic disease [facility] Medical History Heart murmur Acquired scoliosis Elevated sed rate Chronic midline low back pain without sciatica Active asthma Surgical History No history of previous surgery Family History Mother Diabetes Stroke Father Heart disease Unknown Family history of autoimmune disorder Family/Other Colon cancer Social History Household Members: Significant Other Alcohol intake: current Alcohol intake frequency: holidays/special occasions only Patient Tobacco Use Status: Never used Tobacco 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al status: employed 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: [employer] Female Reproductive History Menstrual Total pregnancies: 0 Review of Systems [place] Reports back pain, Reports arthralgias and Reports stiffness Physical Exam Vital Signs: Last Vital Signs Pulse 81 08/11/24 08:46 BP 115/62 08/11/24 08:46 Pulse Ox 98 08/11/24 08:46 Oxygen Delivery Method Room Air 08/11/24 08:46 BMI result Body Mass Index 40.5 Const General: cooperative, healthy appearing and comfortable Nutritional Appearance: obese Orientation/consciousness: patient oriented x3 Limitations: no limitations HEENT Head: Yes normocephalic and Yes atraumatic Mouth: moist mucous membranes Resp Effort & Inspection: normal respiratory effort and able to speak in complete sentences Cardio Rate: regular rate Rhythm: regular rhythm GI Palpation (GI): Soft to palpation and nontender Back/Spine/Pelvis Other: Negative straight leg raise test bilaterally Negative Charley test bilaterally Skin General skin exam: no rashes or lesions noted Neuro General: patient oriented x3 Extrem Other: No swollen joints on exam Normal nailfold capillaroscopy Bilateral paraspinal muscle tenderness Few fibromyalgia tender points Mildly hyper flexible thumbs Genu valgus bilaterally Able to put both palms on the floor with knee straight Radha test 10-17 cm Negative straight leg raise test bilaterally Negative Charley test on the right Equivocal CHARLEY test on the left Results Reviewed Results Reviewed: Any 2018 homogeneous PRIETO 2022 dfs Assessment & Plan Assessment & Plan (1) PRIETO positive: Code(s): R76.8 - Other specified abnormal immunological findings in serum Category: Medical Plan: This is a 23-year-old female who presents for evaluation of chronic mid to low back pain. Labs showed a positive PRIETO. Patient mentions that diagnosis of juvenile arthritis was suggested in her teen years but the diagnosis was withdrawn and she was never on any DMARDs. She was recently evaluated by [facility] and an L-spine MRI showed degenerative changes. She was advised to follow up with Rheumatology. There is hypermobility on exam. I could not appreciate any swollen joints. Comprehensive serology is negative except for her positive PRIETO. Inflammatory markers mildly elevated and may be related to obesity. I started patient on meloxicam 15 mg daily. She took it for 4-5 weeks without any improvement and it caused GI upset. At this time I do not see any convincing signs suggestive of an autoimmune rheumatic disease. Clinical picture rather consistent with fibromyalgia Discussed management of fibromyalgia with patient. Is a noninflammatory, non-autoimmune central afferent processing disorder leading to a diffuse pain syndrome. I suggested that patient try to address her underlying psychiatric issues, anxiety/depression. I suggested evaluation by a therapist and/or a psychiatrist. Try to follow sleep hygiene practices. Request a referral for a sleep study by PCP. Patient would benefit from increased physical activity, either through formal physical therapy or by joining a gym. Advised patient that she should start activity slowly and increase as tolerated. Consider low-impact exercises such as walking, swimming, aqua therapy stretching, yoga. Follow-up with PCP Plan I spent 20 minutes reviewing patient's chart, evaluating patient, counseling patient and documenting in the chart Coding Level of Care Code Est Pt Level 3 (30403) Diagnoses PRIETO positive R76.8
[2024-08-11 08:46] VITALS: BP 115/62; PULSE 81; O2SAT 98; BMI 40.5
== END 2024-08-11 09:30 | disposition home or self-care (01) ==
PROVIDERS: PCP Nurse Practitioner Primary Care; Visit Provider Student in an Organized Health Care Education/Training Program
DX: R76.8 Other specified abnormal immunological findings in serum (principal)
CPT/HCPCS: 99213

== ENCOUNTER → 2024-08-11 08:42 | Outpatient (BNVA) | payer OTHER, SELFPAY | PROVIDERS: PCP Nurse Practitioner Primary Care; Visit Provider Student in an Organized Health Care Education/Training Program ==

== ENCOUNTER 2024-10-24 08:03 | Outpatient (REF) | payer OTHER, SELFPAY ==
[2024-10-24 11:59] LABS: HCG Quantitative 8358 mIU/mL
== END 2024-10-24 08:04 | disposition home or self-care (01) ==
LOC: HO.HHCL 08:03
PROVIDERS: Visit Provider Nurse Practitioner Primary Care
DX: Z32.01 Encounter for pregnancy test, result positive (principal)
CPT/HCPCS: 36415; 84702

== ENCOUNTER 2025-09-13 19:22 | Outpatient (REF) | payer OTHER, SELFPAY ==
--- OUTSIDE RECORDS SUMMARY | 2025-09-13 10:45 | XMS_ITS | Encounter Summary ---
Author Organization [employer] Address [address] [place] [address] Care Team Providers Care Inserter Name Role Phone Latha Vazquez MARGARITA Primary Care Provider [phone] Encounter Details Date Type Department Care Team (Latest Contact Info) Description 09/13/2025 10:45 AM EDT Procedure Visit [facility] [address] [place] [address] Caitlin Enciso, [place] [address] [place] [address] LGSIL on Pap smear of cervix (Primary Dx); Screening examination for venereal disease Social History Tobacco Use Types Packs/Day Years Used Date Smoking Tobacco: Never Passive Smoke Exposure: Never Smokeless Tobacco: Never Alcohol Use Standard Drinks/Week Comments Not Currently 0 (1 standard drink = 0.6 oz pur e alcohol) Depression Answer Date Recorded Patient Health Questionnaire-9 Score 11 08/10/2025 Patient Health Questionnaire-9 Score 11 08/10/2025 Last PHQ-9: Questionnaire Data Not on file 0 08/10/2025 Housing Stability Answer Date Recorded What is your housing situation today? I have tonya trotter 01/27/[address] you li ve. Do you have problems with any of the following? None of the above 01/27/2025 Food Insecurity Answer Date Recorded Within the past 12 months, y ou worried that your food would run out before you got money to buy more: Sometimes True 2024 Within the past 12 months,th e food you bought just didn't last and you didn't have enough money to get more: Sometimes True 01/27/2025 Transportation Answer Date Recorded In the past 12 months, has l ack of transportation kept you from medical appts, meetings, work or from getting things needed for daily living? No 01/27/2025 Utilities Answer Date Recorded In the past 12 months, has t he electric, gas, oil or water company threatened to shut off services in your home? I am not sure 01/27/2025 Depression Answer Date Recorded Patient Health Questionnaire-2 Score 2 08/10/2025 Internet Access Answer Date Recorded Internet Access Q1 Yes 01/27/2025 Internet Access Q2 Not on file 01/27/2025 Comments No Intention Date Recorded No desire to become (finding) 1 Sex and Gender Information Value Date Recorded Sex Assigned at Female 09/29/2022 10:26 AM EDT Legal Sex Female 10:26 AM EDT Gender Identity Female 09/29/2022 10:26 AM EDT Sexual Orientation Straight 12/04/2022 6: 45 PM EST documented as of this encounter Last Filed Vital Signs Vital Sign Reading Time Taken Comments Blood Pressure 120/80 09/13/2025 10:40 AM EDT Pulse 74 09/13/2025 10:40 AM EDT Temperature 37.1 C (98.7 F) 09/13/2025 10:40 AM EDT Respiratory Rate 11 09/13/2025 10:40 AM EDT Oxygen Saturation 99% 09/13/2025 10:40 AM EDT Inhaled Oxygen Concentration - - Weight 85.4 kg (188 lb 4 oz) 09/13/2025 10:40 AM EDT Height 147.3 cm (4' 10 ) 09/13/2025 10:40 AM EDT Body Mass Index 39.34 09/13/2025 10:40 AM EDT documented in this encounter Progress Notes * Caitlin Enciso CNM - 09/13/2025 10:45 AM EDT Subjective Patient ID: Ebony Coffey is a 24 y.o. female who presents for pap LSIL pap 02/2024. Here for repeat. SVB at [facility] 06/21/2025, no complications, no repair. Baby boy Padilla. Breast and bottle feeding. Amenorrheic. Not sexually active since giving . Recently started oral contraceptive pill Kariva. Denies ACHES. Happy with oral contraceptive pill. Agrees to pap based STI testing today. 1 snf AMAB partner. Review of Systems Eyes: Negative for visual disturbance. Respiratory: Negative for shortness of breath. Cardiovascular: Negative for chest pain and leg swelling. Genitourinary: Negative for dysuria, frequency, genital sores, hematuria, menstrual problem, pelvic pain, urgency, vaginal bleeding, vaginal discharge and vaginal pain. No abnormal bleeding, no breast pain, no breast mass, no nipple discharge Skin: Negative for color change. Neurological: Negative for headaches. Objective BP 120/80 (BP Location: Left arm, Patient Position: Sitting, BP Cuff Size: Adult) Pulse 74 Temp98.7 ??F (37.1 ??C) (Oral) Resp 11 Ht 4' 10 (1.473 m) Wt 188 lb 4 oz (85.4 kg) LMP (LMP Unknown) SpO2 99% BMI 39.34 kg/m?? 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 Constitutional: Appearance: Normal appearance. Genitourinary: General: Normal vulva. Labia: Right: No rash, tenderness, lesion or injury. Left: No rash, tenderness, lesion or injury. Vagina: Normal. No signs of injury and foreign body. No vaginal discharge, erythema, tenderness, bleeding or lesions. Cervix: No cervical motion tenderness, discharge, friability, lesion, erythema, cervical bleeding or eversion. Uterus: Normal. Not enlarged and not tender. Adnexa: Right adnexa normal and left adnexa normal. Right: No mass, tenderness or fullness. Left: No mass, tenderness or fullness. Neurological: Mental Status: She is alert. Psychiatric: Mood and Affect: Mood normal. Behavior: Behavior normal. Assessment/Plan Diagnoses and all orders for this visit: LGSIL on Pap smear of cervix - Pap Smear Pap sent today. Repeat 1 year if LSIL or less. Screening examination for venereal disease - STI testing add on (NG, CT, Trich) Pap based STI testing sent. Will contact with results. Happy with oral contraceptive pill. Let me know when she needs refills. ACHES reviewed. documented in this encounter Plan of Treatment Scheduled Orders Name Type Priority Associated Diagnoses Orde r Schedule Pap Smear Pathology and Cytology Routine LGSIL on Pap smear of cervix Ordered: 09/13/2025 STI testing add on (NG, CT, Trich) Pathology and Cytology Routine Screening examination for venereal disease Ordered: 09/13/2025 documented as of this encounter Visit Diagnoses Diagnosis LGSIL on Pap smear of cervix- Primary Screening examination for venereal disease documented in this encounter Additional Health Concerns Assessment Noted Time PHQ-9 Depression Total Score: 11 025 11:35 AM EDT documented as of this encounter Care Teams Inserter Relationship Specialty Start Date End Date Latha Vazquez ANP [address] [place] [id number] PCP - General Family Medicine 06/15/23 documented as of this encounter
--- OUTSIDE RECORDS SUMMARY | 2025-09-13 19:39 | XMS_ITS | Encounter Summary ---
Author Organization [employer] Address [address] [place] [address] Care Team Providers Care Food General Manager Name Role Phone Latha Vazquez Primary Care Provider [phone] Reason for Visit * Reason Onset Date Comments Med Refill 02/05/2024 Encounter Details Date Type Department Care Team (Late st Contact Info) Description 02/05/2024 Refill [facility] [address] [place], [place] [phone] Latha Vazquez ANP [address] [place] [address] Healthcare maintenance Social History Tobacco Use Types Packs/Day Years Used Date Smoking Tobacco: Never Passive Smoke Exposure: Never Smokeless Tobacco: Never Alcohol Use Standard Drinks/Week Comments Not Currently 0 (1 standard drink = 0.6 oz pur e alcohol) Depression Answer Date Recorded Patient Health Questionnaire-9 Score 0 01/28/2024 Patient Health Questionnaire-9 Score 0 01/28/2024 Last PHQ-9: Questionnaire Data Not on file 0 01/28/2024 Housing Stability Answer Date Recorded What is your housing situation today? I have tonya trotter 01/20/[address] you li ve. Do you have problems with any of the following? Pests such as bugs, ants, or mice;Mold 01/20/2024 Food Insecurity Answer Date Recorded Within the past 12 months, y ou worried that your food would run out before you got money to buy more: Often true 01/20/2024 Within the past 12 months,th e food you bought just didn't last and you didn't have enough money to get more: Often true Transportation Answer Date Recorded In the past 12 months, has l ack of transportation kept you from medical appts, meetings, work or from getting things needed for daily living? No 01/20/2024 Utilities Answer Date Recorded In the past 12 months, has t he electric, gas, oil or water company threatened to shut off services in your home? No 01/20/2024 Depression Answer Date Recorded Patient Health Questionnaire-2 Score 0 01/28/2024 Comments Unknown Sex and Gender Information Value Date Recorded Sex Assigned at Female 09/29/2022 10:26 AM EDT Legal Sex Female 10:26 AM EDT Gender Identity Female 09/29/2022 10:26 AM EDT Sexual Orientation Straight 12/04/2022 6: 45 PM EST documented as of this encounter Plan of Treatment Not on file documented as of this encounter Visit Diagnoses Diagnosis Healthcare maintenance documented in this encounter Additional Health Concerns Assessment Noted Time PHQ-9 Depression Total Score: 0 01/28/20 24 9:55 AM EST documented as of this encounter Care Teams Food General Manager Relationship Specialty Start Date End Date Latha Vazquez ANP [address] [place] [id number] PCP - General Family Medicine 06/15/23 documented as of this encounter
--- OUTSIDE RECORDS SUMMARY | 2025-09-13 19:39 | XMS_ITS | Clinical Summary ---
Author Organization [facility] Address [address] [place] [id number] Care Team Providers Care Mixed Crop And Livestock Farm Worker Name Role Phone TavoMervat osullivan BARRY Primary Care Provider [phone] Source Comments Please note that some or all of the patient's information could have additional privacy protections. State laws allow health care providers to render certain types of treatment to minors without parental consent. Please do not assume that this information can be shared solely by obtaining just the consent of the patient's parent/guardian. Please determine if all or part of the patient's care was rendered without parent/guardian involvement. And, if so, obtain the minor's consent prior to disclosure.[facility] Allerg[facility] Active Allergy Reactions Criticality Noted Date Comments Other (Environmental) 05/17/2020 Medications cetirizine (ZYRTEC) 10 MG tabletIndications:s easonal allergic rhinitis Take 10 mg by mouth 2 (two) times daily Active multivit-min/ferrou s fumarate (MULTI VITAMIN ORAL) Take by mouth Ac tive etonogestreL (NEXPLANON) 68 mg 68 mg by Subdermal route once Active UNABLE TO FIND Med Name: *OCP (unsure which one) Active ALBUTEROL INHL Inhale into the lungs Active fluticasone propionate (FLOVENT HFA) 110 mcg/actuation inhaler Inhale 2 puffs into the lungs daily Active mometasone (NASONEX) 50 mcg/actuation nasal spray by Nasal route daily Active UNABLE TO FIND Allergy eye drops: unsure which Active melatonin 5 mg Capsule Take by mouth Active amitriptyline (ELAVIL) 10 MG tabletIndications:A mplified musculoskeletal pain, diffuse TAKE 1 TABLET BY MOUTH EVERY DAY IN THE EVENING 30 tablet 2 0 Active Active Problems No known active problems Family History Medical History Relation Name Comments Pain Maternal Grandmother Osteoarthritis Mother Dermatomyositis Neg Hx Juvenile idiopathic arthritis Neg Hx Lupus Neg Hx Relation Name Status Comments Maternal Grandmother Mother Social History Tobacco Use Types Packs/Day Years Used Date Smoking Tobacco: Never Other Needs Answer Date Recorded Anything else about your child you'd like help w ith? Not on file 08/14/2023 Share good news about positive changes: Not on f ile 08/14/2023 Comments No Sex and Gender Information Value Date Recorded Sex Assigned at Not on file Legal Sex Female 5:29 PM EDT Gender Identity Not on file Sexual Orientation Not on file Last Filed Vital Signs Vital Sign Reading Time Taken Comments Blood Pressure 117/71 06/28/2020 2:18 PM EDT Pulse 82 05/17/2020 9:04 AM EDT Temperature - - Respiratory Rate - - Oxygen Saturation - - Inhaled Oxygen Concentration - - Weight 73.6 kg (162 lb 4.1 oz) 06/28/2020 2:18 P M EDT Height 149.2 cm (4' 10.74 ) 06/28/2020 2:18 PM E DT Body Mass Index 33.06 06/28/2020 2:18 PM EDT Plan of Treatment Health Maintenance Due Date Last Done Comments DTaP/TDAP/TD VACCINES (1 - Tdap) 2009 ADOLESCENT HIV SCREENING 2015 COVID-19 Vaccine (2023-2 5 season) 2025 INFLUENZA (#1) 2025 NIRSEVIMAB VACCINES UNDER 8 MONTHS Aged Out No longer eligible based on patient's age to complete this topic Insurance * Guarantor: KIRSTIE PHELPS Account Type Relation to Patient Date of Phone Billing Address Personal/Family Mother [address] [address] [facility] MEDICAID Care Teams Mixed Crop And Livestock Farm Worker Relationship Specialty Start Date End Date Mervat Spence CPNP [address] [facility] [place] [id number] PCP - General Nurse Practitioner 04/10/20
--- OUTSIDE RECORDS SUMMARY | 2025-09-13 19:39 | XMS_ITS | Encounter Summary ---
Author Organization [employer] Address [address] [facility] [place] [address] Care Team Providers Care Motorsports Technician Name Role Phone Latha Vazquez Primary Care Provider [phone] Reason for Visit * Reason Onset Date Comments Med Refill 03/21/2024 Encounter Details Date Type Department Care Team (Late st Contact Info) Description 03/21/2024 Refill [facility] [address] [place] [address] Latha Vazquez ANP [address] [place] [address] Seasonal allergies Social History Tobacco Use Types Packs/Day Years [...] Patient Health Questionnaire-2 Score 0 01/28/2024 Comments No Sex and Gender Information Value Date Recorded Sex Assigned at Female 09/29/2022 10:26 AM EDT Legal Sex Female 10:26 AM EDT Gender Identity Female 09/29/2022 10:26 AM EDT Sexual Orientation Straight 12/04/2022 6: 45 PM EST documented as of this encounter Plan of Treatment Not on file documented as of this encounter Visit Diagnoses Diagnosis Seasonal allergies Allergic rhinitis, cause unspecified documented in this encounter Additional Health Concerns Assessment Noted Time PHQ-9 Depression Total Score: 0 01/28/20 24 9:55 AM EST documented as of this encounter Care Teams Motorsports Technician Relationship Specialty Start Date End Date Latha Vazquez ANP [address] [place] [address] PCP - General Family Medicine 06/15/23 documented as of this encounter
--- OUTSIDE RECORDS SUMMARY | 2025-09-13 19:39 | XMS_ITS | Encounter Summary ---
Author Organization [email or web address] Address [address] [facility] [address] [place] [address] Care Team Providers Care Senior Clinical Study Manager Name Role Phone Latha Vazquez MARGARITA Primary Care Provider [phone] Reason for Visit * Reason Onset Date Comments chart prep 09/12/2025 Encounter Details Date Type Department Care Team ([facility] st Contact Info) Description 09/12/2025 Telephone [facility] [address] [place], [place] [phone] Caitlin Enciso CNM [address] [place] [address] chart prep Social History Tobacco Use Types Packs/Day Years [...] Q2 Not on file 01/27/2025 Comments No Sex and Gender Information Value Date Recorded Sex Assigned at Female 09/29/2022 10:26 AM EDT Legal Sex Female 10:26 AM EDT Gender Identity Female 09/29/2022 10:26 AM EDT Sexual Orientation Straight 12/04/2022 6: 45 PM EST documented as of this encounter Miscellaneous Notes * Telephone Encounter - Kelsie Carter MA - 09/12/2025 1:06 PM EDT ..Chart Prep Labs: not applicable Images: not applicable Vaccines due: Covid Due and Flu Due Referrals: Not Applicable Screenings: LMP Overdue care gaps: LMP documented in this encounter Plan of Treatment Not on file documented as of this encounter Visit Diagnoses Not on filedocumented in this encounter Additional Health Concerns Assessment Noted Time PHQ-9 Depression Total Score: 11 025 11:35 AM EDT documented as of this encounter Care Teams Senior Clinical Study Manager Relationship Specialty Start Date End Date Latha Vazquez ANP [address] [place] [address] [place] [address] PCP - General Family Medicine 06/15/23 documented as of this encounter
--- OUTSIDE RECORDS SUMMARY | 2025-09-13 19:39 | XMS_ITS | Encounter Summary ---
Author Organization [employer] Address [address] [place] [address] Care Team Providers Care Fire Support Specialist Name Role Phone Latha Vazquez Primary Care Provider [phone] Reason for Visit * Reason Comments Med Refill Encounter Details Date Type Department Care Team (Late st Contact Info) Description 03/10/2025 Refill [facility] [address] [place], [place] [phone] Latha Vazquez ANP [address] [place] [address] Seasonal allergies Social History Tobacco Use Types Packs/Day Years Used Date Smoking Tobacco: Never Passive Smoke Exposure: Never Smokeless Tobacco: Never Alcohol Use Standard Drinks/Week Comments Not Currently 0 (1 standard drink = 0.6 oz pur e alcohol) Depression Answer Date Recorded Patient Health Questionnaire-9 Score 10 02/07/2025 Patient Health Questionnaire-9 Score 10 02/07/2025 Last PHQ-9: Questionnaire Data Not on file 0 02/07/2025 Housing Stability Answer Date Recorded What is [...] Answer Date Recorded Patient Health Questionnaire-2 Score 3 02/07/2025 Internet Access Answer Date Recorded Internet Access Q1 Yes 01/27/2025 Internet Access Q2 Not on file 01/27/2025 Comments Yes Sex and Gender Information Value Date Recorded [...] Assessment Noted Time PHQ-9 Depression Total Score: 10 025 10:14 AM EDT documented as of this encounter Care Teams Fire Support Specialist Relationship Specialty Start Date End Date Latha Vazquez ANP [address] [place] [address] PCP - General Family Medicine 06/15/23 documented as of this encounter
--- OUTSIDE RECORDS SUMMARY | 2025-09-13 19:39 | XMS_ITS | Clinical Summary ---
Author Organization [employer] Address [address] [address] [facility] [address] [place] [address] Care Team Providers Care Director Stars Name Role Phone Latha Vazquez Primary Care Provider [phone] Allergies Active Allergy Reactions Criticality Noted Date Comments Dust Mite Extract 11/03/2022 Dust mite group Menthol Cough 03/02/2024 Throat itchiness Other 05/17/2020 Guinea Pigs Medications Diclofenac Sodium (Voltaren) 1 % gelIndications:C hronic midline low back pain without sciatica Apply 2 g topically if needed in the morning and at bedtime (muscle pain). 100 g 3 05/04/20 23 Active lidocaine (Lidoderm) 5 % patchIndications :Chronic midline low back pain without sciatica Apply 1 patch topically in the morning. Remove & discard patch within 12 hours or as directed by MD. 30 patch 2 06/17/20 23 Active albuterol (2.5 MG/3ML) 0.083% nebulizer solution 1 vial by inhalation route every 4 hours prn shortness of breath or wheezing 75 mL 1 09/28/20 23 Active acetaminophen (Tylenol) 500 MG tablet 1 tablet with onset of headaches, may repeat in 1 hour if no improvment. No more than 2 tabs q 4 hours prn 30 tablet 09/28/20 23 Active senna-docusate sodium (Senokot-S) 8.6-50 MG tabletIndication s:Constipation, unspecified constipation type Take 2 tablets by mouth Once per day. 60 tablet 2 03/29/20 24 Active Additional Information Patient not taking.Reported on 09/15/2024 Glycerin-Hyprome llose-PEG 400 (Artificial Tears) 0.2-0.2-1 % solutionIndicati ons:Seasonal allergies ADMINISTER 2 DROPS IN EACH EYE EVERY DAY NEEDED DRY INTO THE AFFECTED EYE(S) 15 mL 1 08/03/20 24 Active loratadine (Claritin) 10 MG tabletIndication s:Seasonal allergies Take 1 tablet (10 mg) by mouth Once per day. 90 tablet 3 09/08/20 24 Active Eye Itch Relief 0.035 % solutionIndicati ons:Seasonal allergies PLACE 1 DROP INTO THE AFFECTED EYE(S) EVERY TWELVE HOURS 5 mL 3 12/13/19 25 Active albuterol (Ventolin HFA) 108 (90 Base) MCG/ACT inhalerIndicatio ns:Mild persistent asthma without complication INHALE 2 PUFFS BY MOUTH EVERY 4 TO 6 HOURS NEEDED FOR WHEEZING OR SHORTNESS OF BREATH 18 g 1 12/22/19 25 Active Allergy Relief/Nasal Decongest 10-240 MG 24 hr tablet TAKE 1 TABLET BY MOUTH EVERY DAY NEEDED FOR ALLERGIES. DO NOT BREAK, CRUSH, DISSOLVE OR CHEW. 12/12/19 25 Active Heartburn Relief 10 MG tablet TAKE 1 TABLET BY MOUTH DAILY FOR REFLUX SYMPTOMS. MAY INCREASE TO TWICE DAILY IF NEEDED 12/13/19 25 Active cholecalciferol VITAMIN D (Vitamin D-3) 50 MCG (2000 UT) capsule Take 1 capsule by mouth Once per day. 12/15/19 25 Active Kariva 0.15-0.02/0.01 MG (19/04) tablet Take 1 tablet by mouth Once per day. 08/17/20 25 Active Vit-Fe Fumarate-FA ( Vitamins) 28-0.8 MG tabletIndication s:Family Planning Take 1 tablet by mouth Once per day. 90 tablet 3 09/08/20 24 025 Discontin ued(Thera py completed ) ondansetron (Zofran) 4 MG tablet Take 1 tablet (4 mg) by mouth every 8 (eight) hours if needed for nausea or vomiting. 30 tablet 2 11/25/20 24 025 Discontin ued(Thera py completed ) oral electrolytes replacement (Pedialyte) solution Take 250 mL by mouth every 2 (two) hours while awake. 82663 mL 3 11/25/20 24 025 Discontin ued(Thera py completed ) pyridoxine (Vitamin B-6) 25 MG tablet TAKE 1 TABLET BY MOUTH NIGHTLY NEEDED FOR NAUSEA AND VOMITING. MAY INCREASE TO 3X DAILY NEEDED 12/13/19 025 Discontin ued(Thera py completed ) GaviLAX 17 GM/SCOOP powder 17 GM BY MOUTH DAILY, DISSOLVE IN 4 TO 8 OZ OF BEVERAGE NEEDED FOR CONSTIPATION 12/13/19 025 Discontin ued(Thera py completed ) Aspirin Low Dose 81 MG EC tablet TAKE 1 TABLET ORALLY DAILY DURING TO DECREASE RISK OF BLOOD PRESSURE PROBLEMS 12/13/19 025 Discontin ued(Thera py completed ) Active Problems Problem Noted Date Diagnosed Date Pain of wrist with palpable mass 01/06/2025 Assessment & Plan (01/06/2025 9:44 AM EST): Small mass-like lesion at base of left thumb and left ventral, lateral wrist. Overall hand/wrist mildly erythematous and swollen. -no immediate indication for XR so will avoid due to -referred to [facility] 01/06/25 Moderate episode of recurren t major depressive disorder (CMS/HCC) 01/01/2023 Overview (01/01/2023): Therapy weekly Difficulty sleeping 11/03/2022 Stress 11/03/2022 Chronic low back pain 04/11/2022 Mild persistent asthma 11/22/2019 Acquired scoliosis 10/30/2014 Obesity 09/11/2014 Encounters Date Type Department Care Team Description 09/13/2025 10:45 AM EDT Procedure Visit [address] [address] Nury Rivas CNM LGSIL on Pap smear of cervix (Primary Dx); Screening examination for venereal disease 09/13/2025 Travel 09/12/2025 Telephone [facility] [address] [place] [address] Nury Rivas CNM chart prep 08/17/[address] [address] Latha Vazquez ANP 08/10/2025 9:30 AM EDT Office Visit [address] [address] Latha Vazquez ANP Ganglion cyst of volar aspect of left wrist (Primary Dx); Mild persistent asthma without complication; Chronic midline low back pain without sciatica 08/10/2025 Travel 08/09/2025 Travel 08/09/[address] [address] Latha Vazquez ANP chart prep 08/03/2025 Patient Outreach [address] [address] Latha Vazquez ANP Pre-visit Planning (SDTN screening completed on 01/27/25 ) 07/11/[address] [address] Latha Vazquez ANP Durable Medical Equipment (Breast pump) from Last 3 Months Immunizations Immunization Administration Dates Next Due DTaP 12/31/2006, 4,08/01/2003,05/29,03/22/2003 HPV 9-Valent 09/28/2015 HPV, Quadrivalent 09/28/2015,09/11/2014,06/16/20 14 Hep A, Unspecified 09/22/2013,03/10/2012 Hep A, ped/adol, 2 dose 09/22/2013,03/10/2012 Hep B, Adolescent or Pediatric 06/12/2003,2002,2002 Hib (PRP-T) 03/25/2004,05/01/2003,02/17/2003 IPV 12/29/2006, 3,05/01/2003,02/06 Influenza injectable quadriv alent IIV4 with preservative 10/20/2016 Influenza injectable quadriv alent preservative free 08/06/2023,08/22/2021,11/07/2020,09/13,10/20/2016,08/28/2015,09/11/2014 Influenza, IIV3, injectable 08/17/2024,0 08/06/2023,08/22/2021,11/07,09/13/2019,09/13/2019,10/20/2016 ,08/28/2015,09/11/2014 Influenza, seasonal, injecta ble, preservative free 12/12/2024,08/17/2024 MMR 06/21/2025,12/29/2006,12/20/2003 Meningococcal ACWY, unspecified 04/14/2019,06/16 Meningococcal MCV4P ACYW-135 04/14/2019,06/16/20 14 Pfizer Covid-19 Vaccine 12+ 10/02/2021,,03/09/2021 Pfizer Covid-19 Vaccine 12+ Bivalent 10/15/2022 Pneumococcal Conjugate PCV 13 07/27/2006 ,08/01/2003,05/01/2003,02/06 Pneumococcal Conjugate PCV 20 08/10/2025 Tdap 04/28/2025,05/30/2024,06/16/2014 Varicella 12/29/2006,12/20/2003 Family History Medical History Relation Name Comments Heart attack Father Heart disease Father Hypertension Father varicose veins Maternal Grandmother Arthritis Mother Diabetes Mother Diabetes type II Mother Heart murmur Mother Stroke Mother Colon cancer Mother's Brother Arthritis Mother's Sister Cancer Mother's Sister Depression Other Hypertension Paternal Grandmother Tremor Paternal Grandmother Relation Name Status Comments Father Maternal Grandmother Mother Mother's Brother Mother's Sister Other Paternal Grandmother Social History Tobacco Use Types Packs/Day Years Used Date Smoking Tobacco: Never Passive Smoke Exposure: Never Smokeless Tobacco: Never Tobacco Cessation:Counseling Given: Not Answered Alcohol Use Standard Drinks/Week Comments Not Currently [...] Orientation Straight 12/04/2022 6: 45 PM EST Last Filed Vital Signs Vital Sign Reading [...] Mass Index 39.34 09/13/2025 10:40 AM EDT Plan of Treatment Health Maintenance Due Date Last Done Comments Meningococcal B Vaccine (1 of 2 - Standard) 2018 Pap Smear 03/28/2025 03/28/2024 COVID-19 Vaccine ( season) 2025 10/15/2022, 10/02/2021, 03/30/2021, Additional history exists Influenza Vaccine (#1) 2025 , 08/17/2024, 08/17/2024, Additional history exists Dental X-Ray: Bitewings 09/16/2025 09/15/20 24, 06/08/2023, 07/26/2019, Additional history exists Dental Oral Exam 11/22/2025 05/22/2025, , 06/08/2023, Additional history exists Dental Prophylaxis 11/22/2025 05/22/2025, 1 , 06/08/2023, Additional history exists Chlamydia and Gonorrhea Screening 12/09/2025 12/09/2024, 07/02/2023, 10/07/2022, Additional history exists SDOH Screening 01/27/2026 01/27/2025 Alcohol/Substance Use Screening 02/07/2026 02/07/2025 Depression Monitoring 02/07/2026 08/10/2025, 025 Dental X-Ray: Full Mouth 06/09/2026 023, 01/07/2017, 07/19/2014 Disability Screening 08/10/2026 08/10/2025 Tobacco Screening 08/10/2026 08/10/2025 Family Planning (PISQ) 09/13/2026 09/13/2025 Lipid Panel 01/02/2028 01/02/2023 DTaP/Tdap/Td Vaccines (9 - Td or Tdap) 04/28/2035 04/28/2025, 05/30/2024, 06/16/2014, Additional history exists Zoster Vaccines (1 of 2) 2052 RSV Patients and Patients Aged 60 years or older (1 - 1-dose 75+ series) 2077 Hepatitis B Vaccines Completed 06/12/2003, 01/15/2003, 2002 HIB Vaccines Completed 03/25/2004, 12/2002, 02/17/2003 IPV Vaccines Completed 12/29/2006, 12/2002, 05/01/2003, Additional history exists Hepatitis A Vaccines Completed 09/22/2013, 09/22/2013, 03/10/2012, Additional history exists HPV Vaccines Completed 09/28/2015, 09/01, 09/11/2014, Additional history exists Meningococcal Vaccine Completed 04/14/2019 , 04/14/2019, 06/16/2014, Additional history exists HIV Screening Completed 07/02/2023 Hepatitis C Screening Completed 07/02/2023 Pneumococcal Vaccine: Pediatrics (0 to 5 Years) and At-Risk Patients (6 to 49) Years Completed 08/10/2025, 07/27/2006, 08/01/2003, Additional history exists RSV under 20 months Aged Out No longe r eligible based on patient's age to complete this topic Rotavirus Vaccines Aged Out No longer eligible based on patient's age to complete this topic Procedures Procedure Name Priority Date/Time Associated Diagnosis Comments PROPHYLAXIS - ADULT Routine 05/22/2025 8 :00 AM EDT PERIODIC ORAL EVALUATION - ESTABLISHED PATIENT Routine 05/22/2025 8:00 AM EDT BITEWINGS - 4 RADIOGRAPHIC IMAGES Routine 09/15/2024 8:00 AM EDT PAP SMEAR Routine 03/28/2024 9:20 AM EDT Cervical cancer screening HEPATITIS C ANTIBODY REFLEX Routine 07/02/2023 1:15 PM EDT HIV ANTIBODY/ANTIGEN ([place] DPH) Routine 07/02/2023 1:15 PM EDT CHLAMYDIA/N. GONORRHOEAE RNA, TMA, UROGENITAL Routine 07/02/2023 12:00 AM EDT Screening examination for venereal disease INTRAORAL - COMPLETE SERIES OF RADIOGRAPHIC IMAGES Routine 06/08/2023 3:00 PM EDT LIPID PANEL, STANDARD Routine 01/02/2023 8:54 AM EST Chronic midline low back pain without sciatica from Last 3 Months or Most Recently Relevant to Health Maintenance Results * Pap Smear (03/28/2024 9:20 AM EDT) Swab Cervix uteri structure / Unknown 03/28/2024 9:20 AM EDT 03/29/2024 7:30 AM EDT [facility] - 04/18/2024 4:51 PM EDT ----- ------- Name: Ebony Cortez Age/Sex: 23/F : 2000 Unit#: [id number] Attend Dr: NURY RIVAS CNM Re03/28/24 Status: DEP [facility] Disch: ----- ------- SPEC : [id number] RECD: 03/29/24 STATUS: EMERY CHARMAINE NUM: [id number] IVANA: 03/28/[address] [facility] [address]: NURY RIVAS CNM ENTERED: 03/29/24 SP TYPE: Pap Smr [facility] DR: ORDERED: Pap Smear, PAP path review Interpretation ABNORMAL PAP TEST. Satisfactory for evaluation, with mildly dysplastic squamous cells / HPV cytopathic change (WINNIE 1; low grade squamous intraepithelial lesion). Clinical Information LMP: Unknown date Previous PAP test: Initial pap Material Received ThinPrep-Cervical ----- ------- Signed (signature on file) Gianluca Swann MD 04/18/24 1651 ----- ------- END OF REPORT Nury Rivas [facility] CYTOLOGY ORDERABLES F inal Result Performing Organization Address [facility] Co de Phone Number [facility] [address] [place] [address] [phone] * Hepatitis C Antibody Reflex (07/02/2023 1:15 PM EDT) Pathologist [facility] Hepatitis C Antibody Nonreactive Nonreactive [facility] Comment:Antibodies to HCV no t detected; does not exclude early acuteHCV infection. 07/02/2023 1:15 PM EDT 07/02/2023 4:[address] [facility] Marguerite l Result Performing Organization Address [facility] Co de Phone Number [facility] [address] [place] [address] [phone] * HIV Ab/Ag ([place] DP) (07/02/2023 1:15 PM EDT) HIV AB/AG Nonreactive Nonreactive [facility] Comment:HIV-1 p24 Ag and/or HIV-1/HIV-2 Ab not detected.A test result that is nonreactive does not exclude thepossibility of exposure to or infection with HIV-1 and/orHIV-2. Nonreactive results in this assay for individualswith prior exposure to HIV-1 and/or HIV-2 may be due toantigen and antibody levels that are below the limit ofdetection of this assay.The [facility] HIV Ag/Ab Combo assay result andsupplemental assay results should be interpreted inconjunction with the patient's clinical presentation,history and other laboratory results. If the results areinconsistent with clinical evidence, additional testing issuggested to confirm the result. 07/02/2023 1:15 PM EDT 07/02/2023 4:37 PM EDT us Nury Rivas [facility] LAB BLOOD ORDERABLES Marguerite ernst Result [facility] [address] [place] [phone] * Chlamydia/N. Gonorrhoeae RNA, TMA, Urogenitial (07/02/2023 12:00 AM EDT) CT PCR NOT DETECTED Not Detect. [facility] Comment:A not detected test result does not exclude the possibilityof infection because test results can be affected byimproper specimen collection, concurrent antibiotic therapy,or the number of organisms in the specimen which may bebelow the sensitivity of the test. As with many diagnostictests, results from the Xpert CT/NG assay should beinterpreted in conjunction with other laboratory andclinical data available to the clinician.Xpert CT/NG performance has not been evaluated in patientsless than 14 years of age. The assay should not be used forthe evaluationof suspected sexual abuse or for other medico-legalindications. Additional testing is recommended in anycircumstance when false positive or false negative resultscould lead to adverse medical, social or psychologicalconsequences. NG PCR NOT DETECTED Not Detect. [facility] Comment:A not detected test result does not exclude the possibilityof infection because test results can be affected byimproper specimen collection, concurrent antibiotic therapy,or the number of organisms in the specimen which may bebelow the sensitivity of the test. As with many diagnostictests, results from the Xpert CT/NG assay should beinterpreted in conjunction with other laboratory andclinical data available to the clinician.Xpert CT/NG performance has not been evaluated in patientsless than 14 years of age. The assay should not be used forthe evaluationof suspected sexual abuse or for other medico-legalindications. Additional testing is recommended in anycircumstance when false positive or false negative resultscould lead to adverse medical, social or psychologicalconsequences. Urine (Urine, Random) 07/02/2023 07/02/2023 Narrative [facility] - 07/03/2023 5:20 AM EDT Urine us Nury Rivas [facility] MICROBIOLOGY - GENERA L ORDERABLES Final Result [facility] [address] [place] [address] [phone] * Lipid Panel, Standard (01/02/2023 8:54 AM EST) Cholesterol, Total 153 <200 mg/dL [email or web address] HDL Cholesterol 54 > OR = 50 mg/dL [email or web address] Triglycerides 98 <150 mg/dL [email or web address] LDL Cholesterol 81 mg/dL (calc) [email or web address] Comment: Reference range: <100 Desirable range <100 mg/dL for primary prevention; <70 mg/dL for patients with CHD or diabetic patients with > or = 2 CHD risk factors. LDL-C is now calculated using the Patrick-Alyssa calculation, which is a validated novel method providing better accuracy than the Friedewald equation in the estimation of LDL-C. Patrick BRODERICK et al. CE. 2013;310(19): 2744-9594 (http://education.Pristine.io/faq/YDX373) Chol/HDLC Ratio 2.8 <5.0 (calc) [email or web address] Non-HDL Cholesterol 99 <130 mg/dL (calc) [email or web address] Comment: For patients with diabetes plus 1 major ASCVD risk factor, treating to a non-HDL-C goal of <100 mg/dL (LDL-C of <70 mg/dL) is considered a therapeutic option. Blood Venous blood specimen / Unknown 01/02/2023 8:54 AM EST 01/02/2023 8:55 AM EST Narrative [facility] - 01/07/2023 2:26 PM EST FASTING:YES FASTING: YES Kendra Zamarripa [facility] LAB BLOOD ORDERABLES Final Result [facility] [address] [place] [address] [email or web address] [address] [place] [address] from Last 3 Months or Most Recently Relevant to Health Maintenance Insurance [facility] , [address] [place] [address] [facility] STANDARD DENTAL-[facility] MEDICAID STAND ADULT Advance Directives Documents on File Type Date Recorded Patient [employer] Tutor Expl anation Advance Directives and Living Will 05/20/2023 2:52 PM Health Care Proxy Care Teams Director Stars Relationship Specialty Start Date End Date Latha Vazquez ANP [address] [place] [phone] PCP - General Family Medicine 06/15/23
--- OUTSIDE RECORDS SUMMARY | 2025-09-13 19:39 | XMS_ITS | Encounter Summary ---
Author Organization [employer] Address [address] [facility] [address] [place] [address] Care Team Providers Care Dinkey Engine Firer Name Role Phone Kendra Zamarripa Primary Care Provider Sunitha Latha Jonas Primary Care Provider [phone] Reason for Visit * Reason Comments Med Refill Encounter Details Date Type Department Care Team (Late st Contact Info) Description 12/05/[address] [facility] [address] [place] [address] Kendra Zamarripa FNP Difficulty sleeping Social History Tobacco Use Types Packs/Day Years Used Date Smoking Tobacco: Never Smokeless Tobacco: Never Alcohol Use Standard Drinks/Week Comments Never 0 (1 standard drink = 0.6 oz pur e alcohol) Comments Unknown Sex and Gender Information Value Date Recorded Sex Assigned at Female 09/29/2022 10:26 AM EDT Legal Sex Female 10:26 AM EDT Gender Identity Female 09/29/2022 10:26 AM EDT Sexual Orientation Straight 12/04/2022 6: 45 PM EST COVID-19 Exposure Response Date Recorded In the last 10 days, have yo u been in contact with someone who was confirmed or suspected to have Coronavirus/COVID-19? No / Unsure 11/18/2022 3:22 PM EST documented as of this encounter Plan of Treatment Not on file documented as of this encounter Visit Diagnoses Diagnosis Difficulty sleeping Unspecified sleep disturbance documented in this encounter Care Teams Dinkey Engine Firer Relationship Specialty Start Date End Date eKndra Zamarripa FNP PCP - General Family Medicine 03/14/22 05/13/23 Latha Vazquez ANP [address] [place] [address] PCP - General Family Medicine 06/15/23 documented as of this encounter
--- OUTSIDE RECORDS SUMMARY | 2025-09-13 19:39 | XMS_ITS | Encounter Summary ---
Author Organization [employer] Address [address] [place] [address] Care Team Providers Care Slabber Light Name Role Phone Taylor Latha AVILA Primary Care Provider [phone] Encounter Details Date Type Department Care Team (Late st Contact Info) Description 06/17/2024 Orders Only [facility] [address] [place] [address] Meg Hopkins MD [address] [place], [place] [phone] Urinary tract infection without hematuria, site unspecified (Primary Dx); Abnormal menses Social History Tobacco Use Types Packs/Day Years [...] on file documented as of this encounter Procedures Procedure Name Priority Date/Time Associated Diagnosis Comments HCG, TOTAL, QN Routine 06/17/2024 12:15 PM EDT Abnormal menses documented in this encounter Results * hCG, Total, Quantitative (06/17/2024 12:15 PM EDT) HCG Quantitative <2 mIU/mL [facility] Comment:Weeks post LMP Appro ximate hCG(Last Menstrual Period) Range (mIU/ml)3 - 4 weeks 9 - 1304 - 5 weeks 75 - 2,6005 - 6 weeks 850 - 20,8006 - 7 weeks 4000 - 100,2007 - 12 weeks 11,500 - 289,30915 - 16 weeks 18,300 - 137,10239 - 29 weeks (2nd trimester) 1,400 - 53,18997 - 41 weeks (3rd trimester) 940 - 60,000The Kaur B- hCG assay is used for the early detection ofpregnancy; it cannot be used to diagnose any conditionunrelated to . If a B-hCG level is not supportedby the clinical evidence, results should be confirmed by analternative method (qualitative urine hCG, for example). Blood Venous blood specimen / Unknown 06/17/2024 12:15 PM EDT 06/17/2024 12:57 PM EDT Meg Hopkins MD LAB BLOOD ORDERABLES Final Result Performing Organization Address City/State/[facility] Co de Phone Number [facility] [address] [place] [address] [phone] documented in this encounter Visit Diagnoses Diagnosis Urinary tract infection without hematuria, site unspecified- Primary Abnormal menses Unspecified disorder of menstruation and other abnormal bleeding from female genital tract documented in this encounter Additional Health Concerns Assessment Noted Time PHQ-9 Depression Total Score: 0 01/28/20 24 9:55 AM EST documented as of this encounter Care Teams Slabber Light Relationship Specialty Start Date End Date Latha Vazquez ANP [address] [place] [phone] PCP - General Family Medicine 06/15/23 documented as of this encounter
--- OUTSIDE RECORDS SUMMARY | 2025-09-13 19:39 | XMS_ITS | Encounter Summary ---
Author Organization [email or web address] Address [address] [facility] [address] [place] [address] Care Team Providers Care Hunter Trapper Name Role Phone Kendra Zamarripa Primary Care Provider Sunitha Latha Jonas Primary Care Provider [phone] Reason for Visit * Reason Comments Med Refill Encounter Details Date Type Department Care Team (Late st Contact Info) Description 12/02/2022 Refill [facility] [address] [place] [address] Kendra Zamarripa FNP Social History Tobacco Use Types Packs/Day Years [...] Diagnoses Not on filedocumented in this encounter Care Teams Hunter Trapper Relationship Specialty Start Date End Date Kendra Zamarripa FNP PCP - General Family Medicine 03/14/22 05/13/23 Latha Vazquez ANP [address] [place] [phone] PCP - General Family Medicine 06/15/23 documented as of this encounter
--- OUTSIDE RECORDS SUMMARY | 2025-09-13 19:39 | XMS_ITS | Encounter Summary ---
Author Organization [employer] Address [address] [facility] [address] [place] [address] Care Team Providers Care Video Games Storywriter Name Role Phone Latha Vazquez MARGARITA Primary Care Provider [phone] Encounter Details Date Type Department Care Team ([facility] st Contact Info) Description 05/27/2024 Orders Only [facility] [address] [place] [address] Caitlin Enciso CN [address] [place], [place] [phone] Social History Tobacco Use Types Packs/Day Years [...] documented as of this encounter Care Teams Video Games Storywriter Relationship Specialty Start Date End Date Latha Vazquez ANP [address] [place] [address] PCP - General Family Medicine 06/15/23 documented as of this encounter
--- OUTSIDE RECORDS SUMMARY | 2025-09-13 19:39 | XMS_ITS | Encounter Summary ---
Author Organization [employer] Address [address] [place] [address] Care Team Providers Care Glue Mixer Name Role Phone Kendra Zamarripa Primary Care Provider Sunitha Latha Jonas Primary Care Provider [phone] Encounter Details Date Type Department Care Team (Late st Contact Info) Description 11/03/2022 Abstract [facility] [address] [place] [address] Provider, MD Liz Social History Tobacco Use Types Packs/Day Years Used Date Smoking Tobacco: Never Assessed Comments Unknown Sex and Gender Information Value [...] suspected to have Coronavirus/COVID-19? No / Unsure 11/03/2022 2:30 PM EST documented as of this encounter Plan of Treatment Not on file documented as of this encounter Visit Diagnoses Not on filedocumented in this encounter Care Teams Glue Mixer Relationship Specialty Start Date End Date Kendra Zamarripa FNP PCP - General Family Medicine 03/14/22 05/13/23 Latha Vazquez ANP [address] [place] [address] PCP - General Family Medicine 06/15/23 documented as of this encounter
--- OUTSIDE RECORDS SUMMARY | 2025-09-13 19:39 | XMS_ITS | Encounter Summary ---
Author Organization [employer] Address [address] [place] [address] Care Team Providers Care Proof Clerk Name Role Phone Latha Vazquez MARGARITA Primary Care Provider Encounter Details Date Type Department Care Team (Latest Contact Info) Description 09/13/2025 Travel Social History Tobacco Use Types Packs/Day Years [...] documented as of this encounter Care Teams Proof Clerk Relationship Specialty Start Date End Date Latha Vazquez ANP [address] [place] [id number] PCP - General Family Medicine 06/15/23 documented as of this encounter
--- OUTSIDE RECORDS SUMMARY | 2025-09-13 19:39 | XMS_ITS | Clinical Summary ---
Author Organization [facility] Address [address] [place] [address] Phone Care Team Providers Care High Value Associate Name Role Phone Unavailable Primary Care Provider Unavailabl e Allergies Active Allergy Reactions Criticality Noted Date Comments Levonorgestrel-Ethinyl Estrad Sneezing 06/20/2025 Seasonal allergied with sinus stuffiness and sneezing Medications loratadine (CLARITIN) 10 mg tabletIndicatio ns:allergic rhinitis Take 10 mg by mouth daily as needed for allergies. Indications: inflammation of the nose due to an allergy Active albuterol 90 mcg/actuation inhaler Inhale 2 puffs into the lungs 4 (four) times a day as needed for wheezing. Active acetaminophen (TYLENOL) 325 mg tablet Take 3 tablets (975 mg total) by mouth every 6 (six) hours as needed for pain (specific location in comments). 5 Active docusate sodium (COLACE) 100 MG capsule Take 1 capsule (100 mg total) by mouth 2 (two) times a day. 60 capsule 1 Active ibuprofen (ADVIL,MOTRIN) 600 MG tablet Take 1 tablet (600 mg total) by mouth every 6 (six) hours as needed for pain (specific location in comments). 30 tablet 1 5 Active Active Problems Problem Noted Date Diagnosed Date state 06/22/2025 Normal intrauterine , antepartum 2024 Mild intermittent asthma without complication Rubella non-immune status, antepartum 06/20/2025 BMI 40.0-44.9, adult 06/20/2025 Encounters Date Type Department Care Team Description 06/20/2025 5:46 PM EDT Anesthesia Event [facility] [address] [place] [address] Nagi Doll MD 06/20/2025 4:00 PM EDT - 06/22/2025 5:09 PM EDT Hospital Encounter [facility] [address] [place] [address] Maddie Harrell MD Greenman, Melanie S, MD Discharge Disposition: Home or Self Care from Last 3 Months Immunizations Immunization Administration Dates Next Due MMR 06/21/2025 Social History Tobacco Use Types Packs/Day Years Used Date Smoking Tobacco: Never Assessed Education Answer Date Recorded Are you interested in more education? Not on geraldo e 06/20/2025 Are you concerned about learning? Not on file 06/20/2025 No 06/20/2025 No 06/20/2025 Digital Access Answer Date Recorded No 06/20/2025 No 06/20/2025 Reliable internet access at home? Not on file 06/20/2025 Device with a working camera? Not on file Intimate Partner Violence Answer Date R ecorded Are you denied basic needs s uch as food, clothing, or medical care? No 06/20/2025 In the past 12 months have y ou been in a relationship with a person who hurts, threatens, or tries to control you? No 06/20/2025 Are you denied basic needs s uch as food, clothing, or medical care? No 06/20/2025 In the past 12 months have y ou been in a relationship with a person who hurts, threatens, or tries to control you? No 06/20/2025 Comments No Sex and Gender Information Value Date Recorded Sex Assigned at Not on file Legal Sex Female 4:00 PM EDT Gender Identity Female 06/20/2025 4:12 PM EDT Sexual Orientation Straight 06/20/2025 4: 18 PM EDT Last Filed Vital Signs Vital Sign Reading Time Taken Comments Blood Pressure 107/72 06/22/2025 8:00 AM EDT Pulse 69 06/22/2025 8:00 AM EDT Temperature 36.5 C (97.7 F) 06/22/2025 8:00 AM EDT Respiratory Rate 18 06/22/2025 8:00 AM EDT Oxygen Saturation 98% 06/22/2025 8:00 AM EDT Inhaled Oxygen Concentration - - Weight 95.3 kg (210 lb) 06/20/2025 5:58 PM EDT Height 147.3 cm (4' 10 ) 06/20/2025 6:00 PM EDT Body Mass Index 43.89 06/20/2025 5:58 PM EDT Plan of Treatment Health Maintenance Due Date Last Done Comments DEPRESSION SCREENING 2014 SMOKING Hx and SMOKELESS TOBACCO SCREENING 2015 HPV VACCINES (1 - 3-dose series) 2017 MENINGOCOCCAL VACCINES (B) ( 1 of 2 - Standard) 2018 PNEUMOCOCCAL VACCINES (0-49 years) (1 of 2 - PCV) 2021 INFLUENZA VACCINE (#1) 2025 COVID-19 VACCINE ( - 2024-2 6 season) 2025 CHLAMYDIA SCREENING 12/09/2025 12/09/2024 PAP SMEAR 03/28/2027 03/28/2024 Adult Td,Tdap Booster 05/30/2034 05/30/2024 , 06/16/2014 HEPATITIS C SCREENING Completed 12/09/2024 HIV ONE-TIME SCREENING (18-6 5 YEARS) Completed 12/09/2024 HEPATITIS A VACCINES Aged Out No long er eligible based on patient's age to complete this topic HIB VACCINES Aged Out No longer eligi ble based on patient's age to complete this topic MENINGOCOCCAL VACCINES (ACWY) Aged Out No longer eligible based on patient's age to complete this topic Medical Devices Not on file Procedures Procedure Name Priority Date/Time Associated Diagnosis Comments CBC Routine 06/22/2025 8:08 AM EDT ABO2F - 2ND TYPE (NEW SAMPLE) STAT 06/20/2025 5:47 PM EDT ANES EPIDURAL LDA Routine 06/20/2025 5:4 5 PM EDT TYPE AND SCREEN (ABO,RH,ANTIBODY SCREEN) Routine 06/20/2025 4:50 PM EDT SYPHILIS ANTIBODY SCREEN ASSAY STAT 06/20/2025 4:50 PM EDT CBC STAT 06/20/2025 4:50 PM EDT CHLAMYDIA TRACHOMATIS AND NEISSERIA GONORRHOEAE NUCLEIC ACID DETECTION Routine 12/09/2024 HEPATITIS C ANTIBODY, QUALITATIVE Routine 12/09/2024 from Last 3 Months or Most Recently Relevant to Health Maintenance Results * (ABNORMAL) CBC (06/22/2025 8:08 AM EDT) Only the most recent of2 resultswithin the time period is included. WBC 6.99 4.00 - 11.00 K/uL [facility] RBC 3.46(L) 4.00 - 5.20 M/uL [facility] HGB 10.4(L) 12.0 - 16.0 g/dL [facility] HCT 32.3(L) 36.0 - 46.0 % [facility] PLT 190 150 - 450 K/uL [facility] MCV 93.4 80.0 - 100.0 fL [facility] MCH 30.1 27.0 - 31.0 pg [facility] MCHC 32.2 32.0 - 36.0 g/dL [facility] RDW 14.3 11.5 - 14.5 % [facility] MPV 11.1 8.4 - 12.0 fL [facility] NRBC 0.00 0.00 /100 WBCs [facility] ABSOLUTE NRBC 0.00 0.00 K/uL [facility] Blood 06/22/2025 8:08 AM EDT 06/22/2025 8:12 AM EDT Fer Mac CNM LAB BLOOD ORDERABLES Final R esult [facility] [address] [place] [address] * 2nd Type (New Sample) (06/20/2025 5:47 PM EDT) ABO/Rh A Positive [facility] Resulting Agency [facility] 06/20/2025 5:47 PM EDT 06/20/2025 5:52 PM EDT Melita Pan Florezjuan CN BLOOD BANK TEST ORDERABL ES Final Result [address] [address] * ANES EPIDURAL LDA (06/20/2025 5:45 PM EDT) Narrative Nagi Doll MD - 06/20/2025 5:45 PM EDT Nagi Doll MD 06/20/2025 6:16 PM Epidural Catheter Placement Procedure Note: Start time: 06/20/2025 5:45 PM Reason for block: procedure for pain, at patient's request and per surgeon request Performed by: anesthesiologist Anesthesiologist: Nagi Doll MD Ivor Protocol performed: consent obtained, patient identified with 2 identifiers, correct procedure verified, correct site and laterality confirmed, verified equipment, coagulation status reviewed and implant history reviewed. Procedure details: Patient position: sitting Prep: chloraprep Approach: midline Location: lumbar (1-5) Block type: continuous catheter Level: L1-2 Needle and Epidural Catheter: Needle type: Tuohy Needle gauge: 17 G Number of attempts: 1 Catheter type: multi-port Loss of resistance depth: 8 SINCERE Technique: SINCERE air Needle length: standard Catheter at skin depth: 15 Test dose: lidocaine 1.5% with epinephrine Test dose reaction: negative Outcomes: Sensory level: T10 CSF was not aspirated. Blood was not aspirated Paresthesia: no Complications? no Nagi Doll MD [place] ANESTHESIA Final Result * Syphilis antibody screen (06/20/2025 4:50 PM EDT) RPR NON-REACTIV E NON-REACTI VE [facility] Blood 06/20/2025 4:50 PM EDT 06/20/2025 5:18 PM EDT Melita Romero [facility] LAB BLOOD ORDERABLES Fin al Result [address] [address] * Type and Screen (ABO,Rh,Antibody Screen) (06/20/2025 4:50 PM EDT) ABO/Rh A Positive [facility] Antibody Screen Negative [facility] Expiration Date of Sample 06/23/2025,2 359 [facility] Resulting Agency [facility] Blood 06/20/2025 4:50 PM EDT 06/20/2025 5:17 PM EDT [facility] ORDER[facility]L ES Final Result Performing Organization Address [facility]/ZIP Co de Phone Number [address] [address] * Chlamydia trachomatis and Neisseria gonorrhoeae Nucleic Acid Amplification (12/09/2024) Genprobe Aptima Chlamydia neg Genprobe Aptima Gc Neg Historical Provider NON CULTURE MICROBIOLOGY Final Result * Hepatitis C antibody, qualitative (12/09/2024) Hepatitis C Antibody, qualitatitve - External non reactive Historical Provider LAB BLOOD ORDERABLES Marguerite l Result from Last 3 Months or Most Recently Relevant to Health Maintenance Insurance [facility] Advance Directives For more information, please contact: [phone] (9AM - 5PM [facility], Thursday-Thursday) * Full Code (Latest Code Status on File) Date Activated Date Inactivated Comments 06/21/2025 1:40 AM Question Answer Comments Code Status Confirmed With: Patient * Full Code Date Activated Date Inactivated Comments 06/20/2025 7:51 PM 06/21/2025 1:40 AM Question Answer Comments Code Status Confirmed With: Patient Additional Source Comments The information contained in this document represents components of the legal health record. It is not the complete legal health record.[facility]
[2025-09-15 23:08] LABS: C. trachomatis RNA TMA NOT DETECTED (NOT DETECTED); N. gonorrhoeae RNA TMA NOT DETECTED (NOT DETECTED); Trichomonas (NAAT) NOT DETECTED (NOT DETECTED)
== END 2025-09-13 19:23 | disposition home or self-care (01) ==
LOC: HO.HHCLNP 19:22
PROVIDERS: Visit Provider Advanced Practice Midwife
DX: Z20.2 Contact with and (suspected) exposure to infections with a predominantly sexual mode of transmission (principal); R87.612 Low grade squamous intraepithelial lesion on cytologic smear of cervix (LGSIL)
CPT/HCPCS: 87491; 87591; 87661; 88175

== ENCOUNTER 2025-11-15 09:28 | Outpatient (AMB) | payer OTHER, SELFPAY ==
--- NOTE | 2025-11-15 09:29 | MHC.OFFVIS ---
Vital Signs 11/15/25 09:43 Height 4 ft 10 in Weight 183 lb 4 oz BMI 38.3 BP 106/68 Blood Pressure Location Lt brachial Position Sitting Pulse 87 Intake Visit Reasons: abdominal pain Intake Note: Patient complex follow up for abdominal abdominal./Emma lang chelsey was 12/2023. Patient cc: post pandrial admominal pain, specially after eating red meat, feels like having constractions , onset since childbirth (4 months ago), also experience blood in toilet with bm, diarrhea Suction Dredge Dumping Supervisor Required: No Accompanied by: Son Allergies Seasonal Allergies Allergy (Mild, Verified 11/15/25 09:42) Unknown Medication List - Last Reconciled 11/15/25 by Willow Roberto CNP acetaminophen (Tylenol) 650 mg PO Q6H PRN albuterol sulfate mg inhalation Q4H PRN drospirenone (contraceptive) (Slynd) 1 tab PO DAILY famotidine 20 mg PO ONCE PRN fluticasone propionate 110 mcg/actuation (Flovent HFA) 110 mcg inhalation BID PRN inhalational spacing device (Compact Space Chamber) As directed ketotifen fumarate 0.025%(0.035%) (Eye Itch Relief) 1 drp ophthalmic (eye) Q12H loratadine (Allergy Relief (loratadine)) 10 mg PO DAILY HPI HPI abdominal pain: Details: Patient is a 24-year-old female with PMH of asthma. Last visit with OLIVIA Zaragoza 01/26/2024 for n/v and constipation. She present with her almost 5 month old son. Her current primary complaint is a tight epigastric pain that radiates around her midsection, occurring daily but at a manageable level. The pain is exacerbated by eating, particularly red meat, and can take up to 24 hours to resolve even after taking medication. She also experiences acid reflux with regurgitation but denies associated heartburn or dysphagia. The patient reports an episode of a large amount of blood in her stool, which occurred a few weeks to months ago and prompted a visit to [facility]. The bleeding has since improved. She confirms the blood was from her rectum and not vaginal. She has been told she has internal hemorrhoids, which were identified a few years ago. Her bowel movements are now regular, occurring almost daily without constipation. The patient is approx 5 months . She has no history of cancer, no prior abdominal surgeries, and still has her gallbladder. She denies any unexplained weight loss. Social hx: -denies ETOH use -denies recreational drug use -non-smoker - family hx as below -denies personal hx of CA -denies significant cardiopulmonary history -tolerated anesthesia in the past without difficulty. [facility] Medical History Heart murmur Acquired scoliosis Elevated sed rate Chronic midline low back pain without sciatica Active asthma Surgical History No history of previous surgery Family History Mother Diabetes Stroke Father Heart disease Unknown Family history of autoimmune disorder Family/Other Colon cancer Social History Household Members: Significant Other Alcohol intake: current Alcohol intake frequency: holidays/special occasions only Patient Tobacco Use Status: Never used Tobacco 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al status: employed 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: [employer] Review of Systems Const Reports as per HPI ENT Reports as per HPI Card Reports as per HPI Resp Reports as per HPI GI Reports as per HPI Reports as per HPI Physical Exam Const General: healthy appearing, no acute distress and well developed Nutritional Appearance: average body habitus Orientation/consciousness: patient oriented x3 HEENT Head: Yes normal to inspection, Yes normocephalic and Yes atraumatic Face and sinus: Yes normal facial exam Eyes General: appearance normal, both eyes and all related structures Neck Neck: Yes normal visual inspection Resp Effort & Inspection: normal respiratory effort, able to speak in complete sentences, no tracheal deviation and symmetric chest movement Cardio Jugular venous distension: no JVD GI Inspection: Yes normal to inspection, No distended and Yes obesity Palpation (GI): Soft to palpation, not firm, nontender and No hepatosplenomegaly present Auscultation: normal bowel sounds Rectal Exam - Female: visual inspection normal, normal sphincter tone, No Internal hemorrhoid(s) present, No Rectal prolapse, No fecal impaction, No Lesions present (GI), No Anal fissure(s) present, No hemorrhoids, No Fistula present (GI), No Laceration(s) present (GI), No Excoriation present (GI), No mass and No tenderness Neuro General: patient oriented x3 Gait exam (Neuro): Normal gait present Psych Appearance: grossly normal Mental Status: mental status grossly normal Speech and movement: Normal speech and movement present Affect: normal affect Attitude: cooperative Thought process: Normal thought process present Thought content: Normal thought content present Insight: Good insight present (Psych) Judgement: Good judgement present (Psych) Assessment & Plan Assessment & Plan (1) Epigastric pain: Code(s): R10.13 - Epigastric pain Category: Medical Plan: The patient's epigastric pain, which is postprandial and associated with regurgitation, raises concern for gallbladder pathology, especially given her status. - Plan is to start with an ultrasound of the gallbladder. - If the ultrasound is normal and symptoms persist, will proceed to an upper GI series. - An upper endoscopy may be considered if the workup remains unrevealing. - For symptomatic management, a trial of omeprazole 20 mg once daily is prescribed, to be taken on an empty stomach 30 minutes before her first meal. - The patient was counseled on dietary modifications, including avoiding trigger foods such as red meat, spicy foods, carbonation, caffeine, chocolate, and acidic foods. - Further lifestyle advice includes avoiding lying down after eating and not overeating. (2) Bloody stools: Code(s): K92.1 - Melena Category: Medical Plan: The history of a large amount of blood per rectum is concerning, though it is reassuring that recent labs showed no anemia and the rectal exam was normal. - While a colonoscopy is typically recommended for such a presentation, a barium enema will be pursued as the initial diagnostic step given the patient's young age and lack of risk factors. - This test will help visualize the colon to identify any polyps or other sources of bleeding. - If the barium enema is inconclusive and symptoms persist, a full colonoscopy will be considered. - Prescriptions for the laxative tablets and enema required for the prep will be sent to the pharmacy. Plan Follow-up after imaging or sooner as needed Time: I spent a total of 45 minutes on the date of encounter which includes: Preparing to see the patient (reviewed previous documentation, test results and medical history) Performing a medically appropriate exam and/or evaluation Ordering medications, tests, and procedures Documenting clinical information in the health record Orders: Orders [place] barium enema Today K92.1 - Melena US abdomen complete Today R10.13 - Epigastric pain Medications: New bisacodyl per prep instructions. 20 mg (4 x 5 mg) PO ONCE 10 tabs 0RF sodium phosphates 19-7 gram/118 mL (Fleet Enema) per prep instructions 118 mL WY ONCE 133 mL 0RF constipation polyethylene glycol 3350 (Miralax) per prep instructions 238 grams PO ONCE 238 grams 0RF omeprazole Take one tablet daily. Best taken on an empty, 30 minutes before eating. 20 mg PO DAILY 90 caps 1RF Coding Level of Care Code Established Pt Est Pt Level 5 (65824) Patient Type Established Diagnoses Epigastric pain R10.13 Bloody stools K92.1
[2025-11-15 09:43] VITALS: BP 106/68; PULSE 87; BMI 38.3
--- OUTSIDE RECORDS SUMMARY | 2025-11-15 10:51 | XMS_ITS | Encounter Summary ---
Author Organization [employer] Address [address] [place] [address] Care Team Providers Care Printing Supervisor Name Role Phone Latha Vazquez Primary Care Provider [phone] Reason for Visit * Reason Onset Date Comments Med Refill 02/05/2024 Encounter Details Date Type Department Care Team (Late st Contact Info) Description 02/05/2024 Refill [facility] [address], [place] [phone] Latha Vazquez ANP [address] [place] [address] Healthcare maintenance Social History Tobacco Use Types [...] as of this encounter Plan of Treatment Upcoming Encounters Date Type Department Care Team (Late st Contact Info) Description 12/04/2025 3:15 PM EST Office Visit [facility] [address] [place] [address] Latha Vazquez ANP [address] [place] [address] documented as of this encounter Visit Diagnoses Diagnosis Healthcare maintenance documented in this encounter Additional Health Concerns Assessment Noted Time PHQ-9 Depression Total Score: 0 01/28/20 24 9:55 AM EST documented as of this encounter Care Teams Printing Supervisor Relationship Specialty Start Date End Date Latha Vazquez ANP [address] [place] [id number] PCP - General Family Medicine 06/15/23 documented as of this encounter
--- OUTSIDE RECORDS SUMMARY | 2025-11-15 10:52 | XMS_ITS | Clinical Summary ---
Author Organization [facility] Address [address] [place] [phone] Phone Care Team Providers Care Epic Ambulatory Analyst Name Role Phone Unavailable Primary Care Provider [...] status, antepartum 06/20/2025 BMI 40.0-44.9, adult 06/20/2025 Immunizations Immunization Administration Dates Next Due MMR [...] 2021 INFLUENZA VACCINE (#1) 2025 COVID-19 VACCINE (1 - 2024-2 6 season) 2025 CHLAMYDIA SCREENING 12/09/2025 12/09/2024 PAP SMEAR 03/28/2027 03/28/2024 Adult Td,Tdap Booster 05/30/2034 05/30/2024 , 06/16/2014 HEPATITIS C SCREENING Completed 12/09/2024 , 12/09/2024 HIV ONE-TIME SCREENING (18-6 5 YEARS) [...] Procedure Name Priority Date/Time Associated Diagnosis Comments CHLAMYDIA TRACHOMATIS AND NEISSERIA GONORRHOEAE NUCLEIC ACID DETECTION Routine 12/09/2024 HEPATITIS C ANTIBODY, QUALITATIVE Routine 12/09/2024 from Last 3 Months or Most Recently Relevant to Health Maintenance Results * Chlamydia trachomatis and Neisseria gonorrhoeae Nucleic Acid Amplification (12/09/2024) Genprobe Aptima Chlamydia neg Genprobe Aptima Gc Neg us Historical Provider MD LAB GENERAL ORDERABLES Fi nal Result * Hepatitis C antibody, qualitative (12/09/2024) Hepatitis C Antibody, qualitatitve - External non reactive us Historical Provider LAB BLOOD BKR ORDERABLES Final Result from Last 3 Months or Most Recently Relevant to Health Maintenance Insurance [facility] Advance Directives For more information, please contact: [phone] (9AM - 5PM [facility], Thursday-Thursday) * Full Code (Latest Code [...] It is not the complete legal health record.[facility]
--- OUTSIDE RECORDS SUMMARY | 2025-11-15 10:52 | XMS_ITS | Encounter Summary ---
Author Organization [employer] Address [address] 7t [place] [address] Care Team Providers Care Enamel Shader Name Role Phone Kendra Zamarripa Dayami DOCK PUMPER Primary Care Provider Sunitha Latha Jonas ANP Primary Care Provider [phone] Encounter Details Date Type Department Care Team (Late Contact Info) Description 11/03/2022 Abstract [facility] [address] [place] [phone] Provider, MD Liz Social History Tobacco Use [...] Encounters Date Type Department Care Team (Late Contact Info) Description 12/04/2025 3:15 PM EST Office Visit [facility] [address] [place], [place] [phone] Latha Vazquez, ANP [address] [place], [place] [phone] documented as of this encounter Visit Diagnoses Not on filedocumented in this encounter Care Teams Enamel Shader Relationship Specialty Start Date End Date Kendra Zamarripa FNP PCP - General Family Medicine 03/14/22 05/13/23 Latha Vazquez ANP [address] [place] [id number] PCP - General Family Medicine 06/15/23 documented as of this encounter
--- OUTSIDE RECORDS SUMMARY | 2025-11-15 10:52 | XMS_ITS | Clinical Summary ---
Author Organization [facility] Address [address] [place] [address] Care Team Providers Care Assembler Name Role Phone TavoMervat osullivan BARRY Primary Care Provider [phone] Source Comments Please note that some or [...] so, obtain the minor's consent prior to disclosure.[facility] Allergies Active Allergy Reactions Criticality Noted [...] Phone Billing Address Personal/Family Mother [phone] [address] [facility] MEDICAID Care Teams Assembler Relationship Specialty Start Date End Date Mervat Spence CPNP [address] [facility] [place] [address] PCP - General Nurse Practitioner 04/10/20
--- OUTSIDE RECORDS SUMMARY | 2025-11-15 10:52 | XMS_ITS | Encounter Summary ---
Author Organization [employer] Address [address] Floor [address] Care Team Providers Care Pc Technician Name Role Phone Latha Vazquez MARGARITA Primary Care Provider [phone] Encounter Details Date Type Department Care Team ([facility] st Contact Info) Description 05/27/2024 Orders Only [facility] [address] [place] [address] Caitlin Enciso CN [address] [place], [place] [phone] Social History Tobacco Use Types Packs/Day Years [...] Description 12/04/2025 3:15 PM EST Office Visit [facility] [address] [place] [phone] Latha Vazquez ANP [address] [place] [address] documented as of this encounter Visit Diagnoses Not on filedocumented in this encounter Additional Health Concerns Assessment Noted Time PHQ-9 Depression Total Score: 0 01/28/20 24 9:55 AM EST documented as of this encounter Care Teams Pc Technician Relationship Specialty Start Date End Date Latha Vazquez ANP [address] [place] [phone] PCP - General Family Medicine 06/15/23 documented as of this encounter
--- OUTSIDE RECORDS SUMMARY | 2025-11-15 10:52 | XMS_ITS | Encounter Summary ---
Author Organization [employer] Address [address] 7t [place] [address] Care Team Providers Care Soaping Department Supervisor Name Role Phone Taylor Latha AVILA Primary Care Provider [phone] Encounter Details Date Type Department Care Team (Late st Contact Info) Description 06/17/2024 Orders Only [facility] [address] [place] [address] Meg Hopkins MD [address] [place] [address], [place] [phone] Urinary tract infection without hematuria, site unspecified [...] Description 12/04/2025 3:15 PM EST Office Visit [facility] [address] [place], [place] [phone] Latha Vazquez, ANP [address], [place] [phone] documented as of this encounter Procedures Procedure Name Priority Date/Time Associated Diagnosis Comments HCG, TOTAL, QN Routine 06/17/2024 12:15 PM EDT Abnormal menses documented in this encounter Results * hCG, Total, Quantitative (06/17/2024 12:15 PM EDT) HCG Quantitative <2 mIU/mL [facility] Comment:Weeks post LMP Appro ximate hCG(Last Menstrual Period) Range (mIU/ml)3 - 4 weeks 9 - 1304 - 5 weeks 75 - 2,6005 - 6 weeks 850 - 20,8006 - 7 weeks 4000 - 100,2007 - 12 weeks 11,500 - 289,19882 - 16 weeks 18,300 - 137,96381 - 29 weeks (2nd trimester) 1,400 - 53,00125 - 41 weeks (3rd trimester) 940 - [...] 12:15 PM EDT 06/17/2024 12:57 PM EDT us Meg Hopkins MD LAB BLOOD ORDERABLES Final Result Performing Organization Address City/State/[facility] Co de Phone Number [facility] [address] [place] [phone] documented in this encounter Visit Diagnoses Diagnosis Urinary tract infection without hematuria, site unspecified- Primary Abnormal menses Unspecified disorder of menstruation and other abnormal bleeding from female genital tract documented in this encounter Additional Health Concerns Assessment Noted Time PHQ-9 Depression Total Score: 0 01/28/20 24 9:55 AM EST documented as of this encounter Care Teams Soaping Department Supervisor Relationship Specialty Start Date End Date Latha Vazquez ANP [address] [place] [address] PCP - General Family Medicine 06/15/23 documented as of this encounter
--- OUTSIDE RECORDS SUMMARY | 2025-11-15 10:52 | XMS_ITS | Clinical Summary ---
Author Organization [employer] Address [address] 7t [place] [address] Care Team Providers Care Lining Vamper Name Role Phone Latha Vazquez Primary Care Provider [phone] Allergies Active Allergy Reactions Criticality Noted Date Comments Dust Mite Extract 11/03/2022 Dust mite group Menthol Cough 03/02/2024 Throat itchiness Other 05/17/2020 Guinea Pigs Medications * This document contains information received from the source organization and may not represent a complete record from that organization. Diclofenac Sodium (Voltaren) 1 % gelIndications:C hronic midline low back pain without sciatica Apply 2 g topically if needed in the morning and at bedtime (muscle pain). 100 g 3 3 Active lidocaine (Lidoderm) 5 % patchIndications :Chronic midline low back pain without sciatica Apply 1 patch topically in the morning. Remove & discard patch within 12 hours or as directed by MD. 30 patch 2 3 Active albuterol (2.5 MG/3ML) 0.083% nebulizer solution 1 vial by inhalation route every 4 hours prn shortness of breath or wheezing 75 mL 1 3 Active acetaminophen (Tylenol) 500 MG tablet 1 tablet with onset of headaches, may repeat in 1 hour if no improvment. No more than 2 tabs q 4 hours prn 30 tablet 3 Active senna-docusate sodium (Senokot-S) 8.6-50 MG tabletIndication s:Constipation, unspecified constipation type Take 2 tablets by mouth Once per day. 60 tablet 2 4 Active Additional Information Patient not taking.Reported on 09/15/2024 Glycerin-Hyprome llose-PEG 400 (Artificial Tears) 0.2-0.2-1 % solutionIndicati ons:Seasonal allergies ADMINISTER 2 DROPS IN EACH EYE EVERY DAY NEEDED DRY INTO THE AFFECTED EYE(S) 15 mL 1 4 Active loratadine (Claritin) 10 MG tabletIndication s:Seasonal allergies Take 1 tablet (10 mg) by mouth Once per day. 90 tablet 3 4 Active Eye Itch Relief 0.035 % solutionIndicati ons:Seasonal allergies PLACE 1 DROP INTO THE AFFECTED EYE(S) EVERY TWELVE HOURS 5 mL 3 5 Active albuterol (Ventolin HFA) 108 (90 Base) MCG/ACT inhalerIndicatio ns:Mild persistent asthma without complication INHALE 2 PUFFS BY MOUTH EVERY 4 TO 6 HOURS NEEDED FOR WHEEZING OR SHORTNESS OF BREATH 18 g 1 5 Active Allergy Relief/Nasal Decongest 10-240 MG 24 hr tablet TAKE 1 TABLET BY MOUTH EVERY DAY NEEDED FOR ALLERGIES. DO NOT BREAK, CRUSH, DISSOLVE OR CHEW. 5 Active Heartburn Relief 10 MG tablet TAKE 1 TABLET BY MOUTH DAILY FOR REFLUX SYMPTOMS. MAY INCREASE TO TWICE DAILY IF NEEDED 5 Active cholecalciferol VITAMIN D (Vitamin D-3) 50 MCG (1999 UT) capsule Take 1 capsule by mouth Once per day. 5 Active Kariva 0.15-0.02/0.01 MG (19/04) tablet Take 1 tablet by mouth Once per day. 5 Active Active Problems Problem Noted Date [...] episode of recurren t major depressive disorder ([facility]) 01/01/2023 Overview (01/01/2023): Therapy weekly Difficulty sleeping 11/03/2022 Stress 11/03/2022 Chronic low back pain 04/11/2022 Mild persistent asthma 11/22/2019 Acquired scoliosis 10/30/2014 Obesity 09/11/2014 Encounters * This document contains information received from the source organization and may not represent a complete record from that organization. Date Type Department Care Team Description 09/27/2025 Telephone [facility] [address] [place] [address] Latha Vazquez ANP November recall 09/15/2025 Results Follow-Up [address] [address] Nury Rivas CNM Pap Smear 09/13/2025 10:45 AM EDT Procedure Visit [facility] [address] [place] [address] Nury Rivas CNM LGSIL on Pap smear of cervix (Primary Dx); Screening examination for venereal disease 09/13/2025 Travel 09/12/2025 Telephone [facility] [address] [place] [address] Nury Rivas CNM chart prep 08/17/2025 Telephone [facility] [address] [place] [address] Latha Vazquez ANP from Last 3 Months Immunizations Immunization Administration [...] 09/13/2025 10:40 AM EDT Plan of Treatment Upcoming Encounters Date Type Department Care Team (Late st Contact Info) Description 12/04/2025 3:15 PM EST Office Visit [facility] [address] [place], [place] [phone] Latha Vazquez ANP [address] [place], [place] [phone] Health Maintenance Due Date Last Done Comments Meningococcal B Vaccine (1 of 2 - Standard) 2018 COVID-19 Vaccine ( season) 2025 10/15/2022, 10/02/2021, 03/30/2021, Additional history exists Influenza Vaccine (#1) 2025 , 08/17/2024, 08/17/2024, Additional history exists Dental X-Ray: Bitewings 09/16/2025 09/15/20 24, 06/08/2023, 07/26/2019, Additional history exists Dental Oral Exam 11/22/2025 05/22/2025, , 06/08/2023, Additional history exists Dental Prophylaxis 11/22/2025 05/22/2025, 1 , 06/08/2023, Additional history exists SDOH Screening 01/27/2026 01/27/2025 Alcohol/Substance Use Screening 02/07/2026 02/07/2025 Depression Monitoring 02/07/2026 08/10/2025, 025 Dental X-Ray: Full Mouth 06/09/2026 023, 01/07/2017, 07/19/2014 Disability Screening 08/10/2026 08/10/2025 Tobacco Screening 08/10/2026 08/10/2025 Chlamydia and Gonorrhea Screening 09/13/2026 09/13/2025, 12/09/2024, 07/02/2023, Additional history exists Family Planning (PISQ) 09/13/2026 09/13/2025 Pap Smear 09/13/2026 09/13/2025, 03/28/2024 Lipid Panel 01/02/2028 01/02/2023 DTaP/Tdap/Td Vaccines (9 [...] Procedure Name Priority Date/Time Associated Diagnosis Comments CHLAMYDIA/N. GONORRHOEAE AND T. VAGINALIS RNA, QUAL,TMA Routine 09/13/2025 10:57 AM EDT Screening examination for venereal disease PAP SMEAR Routine 09/13/2025 10:57 AM EDT LGSIL on Pap smear of cervix PROPHYLAXIS - ADULT Routine 05/22/2025 8:00 AM EDT PERIODIC ORAL EVALUATION - ESTABLISHED PATIENT Routine 05/22/2025 8:00 AM EDT BITEWINGS - 4 RADIOGRAPHIC IMAGES Routine 09/15/2024 8:00 AM EDT HEPATITIS C ANTIBODY REFLEX Routine 07/02/2023 1:15 PM EDT HIV ANTIBODY/ANTIGEN ([place] DPH) Routine 07/02/2023 1:15 PM EDT INTRAORAL - COMPLETE SERIES OF RADIOGRAPHIC IMAGES Routine 06/08/2023 3:00 PM EDT LIPID PANEL, STANDARD Routine 01/02/2023 8:54 AM EST Chronic midline low back pain without sciatica from Last 3 Months or Most Recently Relevant to Health Maintenance Results * STI testing add on (NG, CT, Trich) (09/13/2025 10:57 AM EDT) Trichomonas (NAAT) NOT DETECTED NOT DETECTED [facility] Comment:The analytical perfo rmance characteristics of thisassay have been determined by [facility]. Themodifications have not been cleared or approved bythe FDA. This assay has been validated pursuant to theIA regulations and is used for clinical purposes.For additional information, please refer tohttp://education.Drimki/faq/Trichomonastma(This link is being provided for information/educational purposes only.)THIS TEST WAS PERFORMED AT:[id number] [place] [id number] DELGADO MD CTNG Ref Lab NOT DETECTED NOT DETECTED [facility] NG Ref Lab NOT DETECTED NOT DETECTED [facility] ThinPrep vial Cervix uteri structure / Unknown 09/13/2025 10:57 AM EDT 09/14/2025 8:16 AM EDT Narrative [facility] - 09/15/2025 11:08 PM EDT Collection Date: [id number] by: BRANDON Sanz: Cervix us Nury Rivas CN LAB CYTOLOGY ORDERABLES F inal Result [facility] [address] [place] [phone] * Pap Smear (09/13/2025 10:57 AM EDT) Swab Cervix uteri structure / Unknown 09/13/2025 10:57 AM EDT 09/14/2025 8:16 AM EDT [facility] - 09/15/2025 12:53 PM EDT ----- ------- Name: Jewel GouldEbony rodrigues Age/Sex: 24/F : 2000 Unit#: [id number] Attend Dr: NURY RIVAS CNM Re09/13/25 Status: DEP REF Location: HO.HHCLNP Disch: ----- ------- SPEC : [id number] RECD: 09/14/25 STATUS: EMERY MONTANO NUM: [id number] IVANA: 09/13/257 [facility] [address]: NURY RIVAS CNM ENTERED: 09/14/25 SP TYPE: Pap Kranthi GUAMAN : ORDERED: Pap Smear Interpretation Satisfactory for evaluation. Negative for intraepithelial lesion or malignancy. Clinical Information LMP: Unknown date Previous PAP test: 2023, LSIL Other history: Screening Material Received ThinPrep-Cervical PAP Disclaimer As of September 21, 2024, the technical services to include automated prescreening performed by the ThinPrep Imaging System, PAP screening and HPV testing will be performed at (CLIA #[id number]), [address] [place] [id number]. Testing for HPV was performed using the Rakesh GEORGINA 6800 system. The presence of HPV in the female genital tract is associated with a number of diseases, including cervical carcinoma. The HPV DNA high risk pool tests for HPV 31, 33, 35, 39, 45, 51, 52, 56, 58, 59, 66 and 68. The testing for HPV 16 and 18 genotypes has also been performed. A positive result indicates detection of nucleic acid sequences from one or more subtypes, whereas a negative result indicates such sequences were not detected. All professional services are performed by [facility] ([address] [place] [address], [place] [id number]; ; CLIA #[id number]). The PAP Test is a screening procedure with the inherent possibility of both false negative and false positive results. Results should be interpreted in the context of historic and current clinical findings. Reliability of the PAP Test is enhanced by performing the test on a regular repetitive basis. ----- ------- Signed (signature on file) TAMRA Lopes (ASCP) 09/15/25 1253 ----- ------- END OF REPORT us Nury Rivas [facility] CYTOLOGY ORDERABLES F inal Result Performing Organization Address [facility] Co de Phone Number [facility] [address] [place] [address] [phone] * Hepatitis C Antibody Reflex (07/02/2023 1:15 PM EDT) Hepatitis C Antibody Nonreactive Nonreactive [facility] Comment:Antibodies to HCV no t detected; does not exclude early acuteHCV infection. 07/02/2023 1:15 PM EDT 07/02/2023 4:36 PM EDT Nury Rivas [facility] BLOOD ORDERABLES Marguerite l Result Performing Organization Address [facility] Co de Phone Number [facility] [address] [place] [address] [phone] * HIV Ab/Ag ([facility]) (07/02/2023 1:15 PM EDT) HIV AB/AG Nonreactive Nonreactive [facility] Comment:HIV-1 p24 Ag and/or HIV-1/HIV-2 Ab not detected.A test result that is nonreactive does not exclude thepossibility of exposure to or infection with HIV-1 and/orHIV-2. Nonreactive results in this assay for individualswith prior exposure to HIV-1 and/or HIV-2 may be due toantigen and antibody levels that are below the limit ofdetection of this assay.The [employer] HIV Ag/Ab Combo assay result andsupplemental assay results should be interpreted inconjunction with the patient's clinical presentation,history and other laboratory results. If the results areinconsistent with clinical evidence, additional testing issuggested to confirm the result. 07/02/2023 1:15 PM EDT 07/02/2023 4:37 PM EDT Nury Rivas [facility] BLOOD ORDERABLES Marguerite l Result Performing Organization Address [facility] Co de Phone Number [facility] [address] [place] [phone] * Lipid Panel, Standard (01/02/2023 8:54 AM EST) Cholesterol, Total 153 <200 mg/dL [facility] [employer] [facility] HDL Cholesterol 54 > OR = 50 mg/dL [facility] [employer] [facility] Triglycerides 98 <150 mg/dL [facility] [employer] [facility] LDL Cholesterol 81 mg/dL (calc) [facility] Comment: Reference range: <100 Desirable range <100 mg/dL for primary prevention; <70 mg/dL for patients with CHD or diabetic patients with > or = 2 CHD risk factors. LDL-C is now calculated using the Edis calculation, which is a validated novel method providing better accuracy than the Friedewald equation in the estimation of LDL-C. Patrick SS et al. CE. 2013;310(19): 3415-9357 (http://education.Qwbcg.Manifact/faq/ILC198) Chol/HDLC Ratio 2.8 <5.0 (calc) [facility] [employer] [facility] Non-HDL Cholesterol 99 <130 mg/dL (calc) [facility] [employer] [facility] Comment: For patients with diabetes plus 1 major ASCVD risk factor, treating to a non-HDL-C goal of <100 mg/dL (LDL-C of <70 mg/dL) is considered a therapeutic option. Blood Venous blood specimen / Unknown 01/02/2023 8:54 AM EST 01/02/2023 8:55 AM EST Narrative [facility] - 01/07/2023 2:26 PM EST FASTING:YES FASTING: YES Kendra Zamarripa [facility] BLOOD ORDERABLES Final Result [facility] [address], [place] [address] [facility] [employer] [facility] [address] [facility], ([address]) [place] [phone] from Last 3 Months or Most Recently Relevant to Health Maintenance Insurance [facility] MEDICAID STAND ADULT Advance Directives Documents on File Type Date Recorded Patient Integrity Consultant Expl anation Advance Directives and Living Will 05/20/2023 2:52 PM Health Care Proxy Care Teams Lining Vamper Relationship Specialty Start Date End Date Latha Vazquez ANP [address] [place] [phone] PCP - General Family Medicine 06/15/23
--- OUTSIDE RECORDS SUMMARY | 2025-11-15 10:52 | XMS_ITS | Encounter Summary ---
Author Organization [employer] Address [address] [facility] 7t [place] [address] Care Team Providers Care Bulb Weeder Name Role Phone Kendra Zamarripa Primary Care Provider Sunitha Latha Jonas Primary Care Provider [phone] Reason for Visit * Reason Comments Med Refill Encounter Details Date Type Department Care Team (Late st Contact Info) Description 12/05/2022 Refill [facility] [address] [facility] [place] [address] Kendra Zamarripa FNP Difficulty sleeping Social History [...] Description 12/04/2025 3:15 PM EST Office Visit [facility] [address] [place] [address] Latha Vazquez ANP [address] [place] [address] documented as of this encounter Visit Diagnoses Diagnosis Difficulty sleeping Unspecified sleep disturbance documented in this encounter Care Teams Bulb Weeder Relationship Specialty Start Date End Date Kendra Zamarripa FNP PCP - General Family Medicine 03/14/22 05/13/23 Latha Vazquez ANP [address] [place] [address] PCP - General Family Medicine 06/15/23 documented as of this encounter
--- OUTSIDE RECORDS SUMMARY | 2025-11-15 10:52 | XMS_ITS | Encounter Summary ---
Author Organization [employer] Address [address] 7[address] [place] [address] Care Team Providers Care Employee Health Rn Name Role Phone Latha Vazquez Primary Care Provider Reason for Visit * Reason Onset Date Comments Med Refill 03/21/2024 Encounter Details Date Type Department Care Team (Late st Contact Info) Description 03/21/2024 Refill [facility] [address] [place] [address] Latha Vazquez ANP [address] [place] [address] Seasonal allergies Social History Tobacco Use Types [...] Description 12/04/2025 3:15 PM EST Office Visit [facility] [address] [place] [phone] Latha Vazquez ANP [address] [place] [address] documented as of this encounter Visit Diagnoses Diagnosis Seasonal allergies Allergic rhinitis, cause unspecified documented in this encounter Additional Health Concerns Assessment Noted Time PHQ-9 Depression Total Score: 0 01/28/20 24 9:55 AM EST documented as of this encounter Care Teams Employee Health Rn Relationship Specialty Start Date End Date Latha Vazquez ANP [address] [place] [phone] PCP - General Family Medicine 06/15/23 documented as of this encounter
--- OUTSIDE RECORDS SUMMARY | 2025-11-15 10:52 | XMS_ITS | Clinical Summary ---
Author Organization [facility] Address [address] [place] [address] Phone Care Team Providers Care Circulation Clerk Name Role Phone Latha Vazquez NP Primary Care Provider [phone] Medications acetaminophen (TYLENOL 8 HOUR) 650 mg 8 hr tablet Take 1 tablet (650 mg total) by mouth every 8 (eight) hours if needed for mild pain. Do not crush, chew, or split. Active famotidine (PEPCID) 20 mg tablet Take by mouth. Active pantoprazole (PROTONIX) 20 mg EC tablet Take 1 tablet (20 mg total) by mouth 1 (one) time each day for 20 days. Do not crush, chew, or split. 20 tablet 10/15/2025 5 Encounters Date Type Department Care Team Description 10/15/2025 5:06 AM EST - 10/15/2025 7:55 AM EST Emergency [facility] Emergency [address] [place] [address] Wilmer Childress MD Lower GI bleeding (Primary Dx); Epigastric discomfort Discharge Disposition: Home or Self Care from Last 3 Months Medical History Medical History Date Comments Asthma Hemorrhoids Heart murmur resolved 6mos ag o per pt Social History Tobacco Use Types Packs/Day Years Used Date Smoking Tobacco: Never Smokeless Tobacco: Never Tobacco Cessation:Counseling Given: Not Answered Alcohol Use Standard Drinks/Week Comments Not Currently 0 (1 standard drink = 0.6 oz pur e alcohol) Comments Unknown Sex and Gender Information Value Date Recorded Sex Assigned at Not on file Legal Sex Female 4:56 AM EST Gender Identity Not on file Sexual Orientation Not on file Last Filed Vital Signs Vital Sign Reading Time Taken Comments Blood Pressure 104/58 10/15/2025 5:42 AM EST Pulse 73 10/15/2025 5:42 AM EST Temperature 36.7 C (98.1 F) 10/15/2025 5:42 AM EST Respiratory Rate 16 10/15/2025 5:42 AM EST Oxygen Saturation 97% 10/15/2025 5:42 AM EST Inhaled Oxygen Concentration - - Weight 82.6 kg (182 lb) 10/15/2025 5:42 AM EST Height 147.3 cm (4' 10 ) 10/15/2025 5:42 AM EST Body Mass Index 38.04 10/15/2025 5:42 AM EST Plan of Treatment Upcoming Encounters Date Type Department Care Team ([facility] st Contact Info) Description 01/08/2026 2:40 PM EST Consult Gastroenterology - [address] [place] [address] Tena Doshi PA 299 [facility] [address] [place] [address] Health Maintenance Due Date Last Done Comments Gonorrhea/Chlamydia Screening 2002 Meningococcal B Vaccine (1 of 2 - Standard) 2018 Depression Screening 11/30/2024 COVID-19 Vaccine ( season) 2025 10/15/2022, 10/02/2021, 03/30/2021, Additional history exists Influenza Vaccine (#1) 2025 , 08/17/2024, 08/06/2023, Additional history exists HIV Screening 10/15/2025 Hepatitis C Screening 10/15/2025 Social Influencers of Health Screening 10/15/2025 Cholesterol Screening (Lipid Panel) 01/02/2028 01/02/2023 Cervical Cancer Screening: Pap Smear 09/13/2028 09/13/2025 DTaP,Tdap,and Td Vaccines (9 - Td or Tdap) 04/28/2035 04/28/2025, 05/30/2024, 06/16/2014, Additional history exists RSV Immunization Adult Patients (1 - 1-dose 75+ series) 2077 Hepatitis B Vaccines Completed 06/12/2003, 01/15/2003, 2002 HIB Vaccines Completed 03/25/2004, 12/2002, 02/17/2003 IPV Vaccines Completed 12/29/2006, 12/2002, 05/01/2003, Additional history exists Varicella Vaccines Completed 12/29/2006, 12/20/2003 Hepatitis A Vaccines Completed 09/22/2013, 03/10/20 12 HPV Vaccines Completed 09/28/2015, 08/30, 06/16/2014 Meningococcal ACWY Vaccine Completed 04/14/2019, MMR Vaccines Completed 06/21/2025, 12/02, 12/20/2003 Pneumococcal Vaccine: Pediatrics (0 to 5 Years) and At-Risk Patients (6 to 49 Years) Completed 08/10/2025, 07/27/2006, 08/01/2003, Additional history exists RSV Immunization Patients Under 20 months Aged Out No longer eligible based on patient's age to complete this topic Procedures Procedure Name Priority Date/Time Associated Diagnosis Comments COMPREHENSIVE METABOLIC PANEL STAT 10/15/2025 5:50 AM EST CBC WITH AUTO DIFFERENTIAL STAT 10/15/2025 5:50 AM EST CBC AND DIFFERENTIAL STAT 10/15/2025 5:50 AM EST from Last 3 Months Results * CBC auto differential (10/15/2025 5:50 AM EST) WBC 7.8 4.8 - 10.8 K/mcL LAB HEMETOLOGY METHOD 10/15/2025 6:23 AM EST [facility] RBC 4.30 3.80 - 4.80 M/mcL LAB HEMETOLOGY METHOD 10/15/2025 6:23 AM EST [facility] Hemoglobin 12.7 11.5 - 16.0 g/dL LAB HEMETOLOGY METHOD 10/15/2025 6:23 AM EST [facility] Hematocrit 38.7 35.0 - 47.0 % LAB HEMETOLOGY METHOD 10/15/2025 6:23 AM [facility] MCV 89.4 79.0 - 98.0 FL LAB HEMETOLOGY METHOD 10/15/2025 6:23 AM [facility] MCH 29.3 27.0 - 32.0 pcg LAB HEMETOLOGY METHOD 10/15/2025 6:23 AM [facility] MCHC 32.8 32.0 - 37.0 g/dL LAB HEMETOLOGY METHOD 10/15/2025 6:23 AM [facility] RDW 13.0 11.0 - 15.0 % LAB HEMETOLOGY METHOD 10/15/2025 6:23 AM [facility] Platelets 284 130 - 400 K/mcL LAB HEMETOLOGY METHOD 10/15/2025 6:23 AM [facility] MPV 9.9 7.0 - 11.0 FL LAB HEMETOLOGY METHOD 10/15/2025 6:23 AM [facility] NRBC 0.0 <1.0 % LAB HEMETOLOGY METHOD 10/15/2025 6:23 AM [facility] NRBC Absolute 0.00 <0.10 K/mcL LAB HEMETOLOGY METHOD 10/15/2025 6:23 AM [facility] Neutrophils Relative 58.7 % LAB HEMETOLOGY METHOD 10/15/2025 6:23 AM [facility] Lymphocytes Relative 31.3 % LAB HEMETOLOGY METHOD 10/15/2025 6:23 AM [facility] Monocytes Relative 7.3 % LAB HEMETOLOGY METHOD 10/15/2025 6:23 AM [facility] Eosinophils Relative 1.9 % LAB HEMETOLOGY METHOD 10/15/2025 6:23 AM [facility] Basophils Relative 0.4 % LAB HEMETOLOGY METHOD 10/15/2025 6:23 AM EST [facility] Immature Granulocytes Relative 0.4 % LAB HEMETOLOGY METHOD 10/15/2025 6:23 AM [facility] Neutrophils Absolute 4.55 1.50 - 7.00 K/mcL LAB HEMETOLOGY METHOD 10/15/2025 6:23 AM [facility] Lymphocytes Absolute 2.43 1.00 - 5.00 K/mcL LAB HEMETOLOGY METHOD 10/15/2025 6:23 AM [facility] Monocytes Absolute 0.57 0.20 - 1.00 K/mcL LAB HEMETOLOGY METHOD 10/15/2025 6:23 AM [facility] Eosinophils Absolute 0.15 0.00 - 0.50 K/mcL LAB HEMETOLOGY METHOD 10/15/2025 6:23 AM [facility] Basophils Absolute 0.03 0.00 - 0.20 K/mcL LAB HEMETOLOGY METHOD 10/15/2025 6:23 AM [facility] Immature Granulocytes Absolute 0.03 0.00 - 0.03 K/mcL LAB HEMETOLOGY METHOD 10/15/2025 6:23 AM [facility] Blood Venous blood specimen / Unknown Venipuncture / Unknown 10/15/2025 5:50 AM EST 10/15/2025 6:13 AM EST us Wilmer Childress MD LAB BLOOD ORDERABLES Final Result [facility] [address] [place] [address], * (ABNORMAL) Comprehensive metabolic panel (10/15/2025 5:50 AM EST) Sodium 140 133 - 145 mmol/L LAB CHEMISTRY METHOD 10/15/2025 6:40 AM EST [facility] Potassium 3.8 3.5 - 5.5 mmol/L LAB CHEMISTRY METHOD 10/15/2025 6:40 AM [facility] Chloride 110 96 - 110 mmol/L LAB CHEMISTRY METHOD 10/15/2025 6:40 AM [facility] CO2 24 21 - 32 mmol/L LAB CHEMISTRY METHOD 10/15/2025 6:40 AM [facility] Anion Gap 6 3 - 11 LAB CHEMISTRY METHOD 10/15/2025 6:40 AM [facility] Glucose 103(H) 70 - 100 mg/dL LAB CHEMISTRY METHOD 10/15/2025 6:40 AM [facility] BUN 10 5 - 25 mg/dL LAB CHEMISTRY METHOD 10/15/2025 6:40 AM [facility] Creatinine 0.64 0.50 - 1.10 mg/dL LAB CHEMISTRY METHOD 10/15/2025 6:40 AM [facility] eGFR 128 >=60 mL/min/1. 73m2 LAB CHEMISTRY METHOD 10/15/2025 6:40 AM [facility] Comment:Calculation based on the Chronic Kidney Disease Epidemiology Collaboration (CKD-EPI) equation refit without adjustment for race. BUN/Creatinine Ratio 15.6 LAB CHEMISTRY METHOD 10/15/2025 6:40 AM [facility] Calcium 9.1 8.5 - 10.5 mg/dL LAB CHEMISTRY METHOD 10/15/2025 6:40 AM [facility] AST (SGOT) 18 10 - 42 unit/L LAB CHEMISTRY METHOD 10/15/2025 6:40 AM [facility] ALT (SGPT) 34 10 - 60 unit/L LAB CHEMISTRY METHOD 10/15/2025 6:40 AM [facility] Alkaline Phosphatase 117 42 - 121 unit/L LAB CHEMISTRY METHOD 10/15/2025 6:40 AM [facility] Total Protein 6.8 6.0 - 8.0 g/dL LAB CHEMISTRY METHOD 10/15/2025 6:40 AM EST [facility] Albumin 3.2 3.2 - 5.0 g/dL LAB CHEMISTRY METHOD 10/15/2025 6:40 AM EST [facility] Total Bilirubin 0.1 0.0 - 1.4 mg/dL LAB CHEMISTRY METHOD 10/15/2025 6:40 AM EST [facility] ([email or web address] Blood Venous blood specimen / Unknown Venipuncture / Unknown 10/15/2025 5:50 AM EST 10/15/2025 6:13 AM EST us Wilmer Childress MD LAB BLOOD ORDERABLES Final Result [facility] ([facility] [[email or web address] [address] [place] [address], from Last 3 Months Insurance MEDICAID - [place] [facility] Care Teams Circulation Clerk Relationship Specialty Start Date End Date Latha Vazquez NP [address] [place] [address], [place] [address] PCP - General 10/15/25
--- OUTSIDE RECORDS SUMMARY | 2025-11-15 10:52 | XMS_ITS | Encounter Summary ---
Author Organization [employer] Address [address] [facility] [address] [address] [place] [address] Care Team Providers Care Senior Sales Executive Name Role Phone Latha Vazquez MARGARITA Primary Care Provider [phone] Encounter Details Date Type Department Care Team ([facility] st Contact Info) Description 09/15/2025 Results Follow-Up [facility] [address] [place] [address] Caitlin Enciso CN [address] [place] [address] Pap Smear Social History Tobacco Use Types Packs/Day Years [...] Description 12/04/2025 3:15 PM EST Office Visit [facility] [address] [place] [phone] Latha Vazquez ANP [address] [place] [address] documented as of this encounter Visit Diagnoses Not on filedocumented in this encounter Additional Health Concerns Assessment Noted Time PHQ-9 Depression Total Score: 11 025 11:35 AM EDT documented as of this encounter Care Teams Senior Sales Executive Relationship Specialty Start Date End Date Latha Vazquez ANP [address] [place] [phone] PCP - General Family Medicine 06/15/23 documented as of this encounter
--- OUTSIDE RECORDS SUMMARY | 2025-11-15 10:53 | XMS_ITS | Encounter Summary ---
Author Organization [employer] Address [address] [facility] [address] [place] [address] Care Team Providers Care Business Planning Analyst Name Role Phone Kendra Zamarripa Primary Care Provider Sunitha Latha Jonas Primary Care Provider [phone] Reason for Visit * Reason Comments Med Refill Encounter Details Date Type Department Care Team (Late st Contact Info) Description 12/02/2022 Refill [facility] [address] [place] [address] Kendra Zamarripa FNP Social History Tobacco Use [...] Description 12/04/2025 3:15 PM EST Office Visit [facility] [address] [place] [address] Latha Vazquez ANP [address] [place] [address] documented as of this encounter Visit Diagnoses Not on filedocumented in this encounter Care Teams Business Planning Analyst Relationship Specialty Start Date End Date Kendra Zamarripa FNP PCP - General Family Medicine 03/14/22 05/13/23 Latha Vazquez ANP [address] [place] [address] PCP - General Family Medicine 06/15/23 documented as of this encounter
--- OUTSIDE RECORDS SUMMARY | 2025-11-15 10:54 | XMS_ITS | Encounter Summary ---
Author Organization [employer] Address [address] [facility] [address] [place] [address] Care Team Providers Care Boiler Room Operator Name Role Phone Latha Vazquez Primary Care Provider [phone] Reason for Visit * Reason Comments Med Refill Encounter Details Date Type Department Care Team (Late st Contact Info) Description 03/10/2025 Refill [facility] [address] [place], [place] [phone] Latha Vazquez ANP [address] [place] [address] Seasonal allergies Social History Tobacco Use Types [...] Description 12/04/2025 3:15 PM EST Office Visit [facility] [address] [place] [phone] Latha Vazquez ANP [address] [place] [address] documented as of this encounter Visit Diagnoses Diagnosis Seasonal allergies Allergic rhinitis, cause unspecified documented in this encounter Additional Health Concerns Assessment Noted Time PHQ-9 Depression Total Score: 10 025 10:14 AM EDT documented as of this encounter Care Teams Boiler Room Operator Relationship Specialty Start Date End Date Latha Vazquez ANP [address] [place] [phone] PCP - General Family Medicine 06/15/23 documented as of this encounter
== END 2025-11-15 10:28 | disposition home or self-care (01) ==
PROVIDERS: Visit Provider Nurse Practitioner Family
DX: R10.13 Epigastric pain (principal); K92.1 Melena
CPT/HCPCS: 99215